=== PATIENT | male | born 1955 | race Caucasian/White ===

== ENCOUNTER 2017-05-15 21:23 | Inpatient (IN) | payer BC ==
[~2017-05-15] VITALS: Ht 167.6 cm; Wt 95.8 kg
[2017-05-15 22:45] VITALS: BP 144/100; PULSE 74; TEMP 36.5; O2SAT 98; Ht 167.6 cm; Wt 95.8 kg
[2017-05-15] MEDS ORDERED: PRAV20TA PO (23:24)
[2017-05-15] MEDS ORDERED: NTRGSL/4 SL (23:24)
[2017-05-15] MEDS ORDERED: MONT1TAB5 PO (23:24)
[2017-05-15] MEDS ORDERED: METO50TA16 PO (23:24)
[2017-05-15] MEDS ORDERED: MOME200A INH (23:24)
[2017-05-15] MEDS ORDERED: PRED-301 PO (23:24)
[2017-05-15] MEDS ORDERED: PANT40TA PO (23:24)
[2017-05-15] MEDS ORDERED: BRL90 PO (23:24)
[2017-05-15] MEDS ORDERED: CLR10 PO (23:24)
[2017-05-16] VITALS (8 sets, daily range): BP systolic 122–163; BP diastolic 77–108; PULSE 78–92; TEMP 36.4–36.9; O2SAT 93–97
[2017-05-16] MEDS ORDERED: PHARMACIST DISCHARGE MED REC CONSULT PRN (00:15)
[2017-05-16] MEDS ORDERED: MoRPHine SULFATE 2 MG/ML CARP IV PRN (00:15)
[2017-05-16] MEDS ORDERED: ACETAMINOPHEN 325 MG TAB PO PRN (00:15)
[2017-05-16] MEDS ORDERED: MAGNESIUM HYDROXIDE SUSP 30 ML UDC PO PRN (00:15)
[2017-05-16] MEDS ORDERED: POLYETHYLENE (MIRALAX) 17 GM PACK PO PRN (00:15)
[2017-05-16] MEDS ORDERED: ONDANSETRON INJ 2 MG/ML 2 ML VIAL IV PRN (00:15)
[2017-05-16] MEDS ORDERED: NITROGLYCERIN 0.4 MG SL PER TAB CHARGE SL PRN (00:15)
[2017-05-16] MEDS ORDERED: ALUMINUM/MAGNESIUM/SIMETH (MAALOX MAX) 30 ML UDC PO PRN (00:15)
[2017-05-16 01:00] LABS: BASO % 0.3 %; BASO ABS # 0.03 K/uL (0-0.2); EOS % 4.2 %; EOS ABS # 0.44 K/uL (0-0.5); HEMATOCRIT 42.8 % (42-52); HEMOGLOBIN 14.8 g/dL (14.0-18.0); IG# 0.05 K/uL (0.00-0.02); LYMPH % 26.6 %; LYMPH ABS # 2.81 K/uL (1.2-3.4); MEAN CELL VOLUME 91.6 fL (80-100); MEAN CORPUSCULAR HEMOGLOBIN 31.7 pg (25-34); MEAN CORPUSCULAR HGB CONC 34.6 g/dl (32-36); MEAN PLATELET VOLUME 10.5 fL (7.4-10.4); MONO % 9.5 %; NEUT % 58.9 %; NEUT ABS # 6.23 K/uL (1.4-6.5); PLATELET COUNT 210 K/uL (130-400); RED CELL DISTRIBUTION WIDTH CV 12.7 % (11.5-14.5); RED CELL DISTRIBUTION WIDTH SD 42.2 fL (36.4-46.3); WHITE BLOOD COUNT 10.56 K/uL (4.8-10.8)
--- NOTE | 2017-05-16 01:01 | History and Physical ---
History & Physical Date & Time of Service: May 16, 2017 at 00:34 Chief Complaint: TIA Primary Care Physician: No Doctor, Assigned History of Present Illness Source: patient, hospital records This is a 61 yo m with a h/o TIA and OR x 4 that is presenting to us as a direct admit from [facility]. The patient states that at approx 0900 this am he felt "unwell" and then started to develop some very mild right UE weakness. This developed while he was shoveling snow. He did not think anything of it as he had a "mini stroke" in September where he had very severe right arm weakness and inability to speak ( there was three episodes 15 minutes each and without sustained loss). The symptoms improved throughout the morning while he rested and he went into town with his at approx 1600. He was walking into a building when he suddenly had a return of his right arm weakness and slurred speech but more intense then previously. He went to the ED where he was evaluated; CT neg for intracranial bleed, neg troponin and concern for TIA vs stroke so patient was transferred for higher level of care. Currently the patient has ongoing right arm weakness where he is able to lift and move fingers but with difficulty. States it is unchanged since the sudden worsening at 1600. He states he does not feel he has difficulty finding words but difficulty saying them. He states he "always had a crooked smile but my said it is much worse than normal". He has right LE weakness but "not near as bad as my right arm." He notes, " I did not come in right away because it was not as intense of the mini stroke, I didn't think it was a stroke at first." Denies presyncope/ syncope, B[place], dizziness, chest pain, palpitations, SOB ,N&V. Patient has a very significant cardiac PMHx. The patient states he has had 9 stents placed in total. His first OR was at the age of 37 and had three additional. He has had two OR this year requiring stents one prior to the September "mini stroke" and one following. He smoked x 15 years and quit after his first OR. He notes his mother passed from an OR as well as his three brothers and one sister. He has three other sisters and one required a CABG and the other two are treated for hyperlipidemia. Past Medical/Surgical History Myocardial infarction x 4 requiring angioplasty TIA right plantar fascitis HTN hyperlipidemia CAD left head injury as a child Family History FH: coronary artery disease SISTER FH: hyperlipidemia SISTER SISTER SISTER FH: myocardial infarction MOTHER, BROTHER, BROTHER, BROTHER, SISTER, Social History Smoking Status: Former Smoker Smokeless Tobacco Use: No Alcohol Use: none Drug Use: none Marital Status: Housing status: lives with family Occupational Status: retired Allergies Coded Allergies: NO KNOWN DRUG ALLERGIES (Verified Allergy, Unknown, ., 05/16/17) Home Medications Scheduled Loratadine (Claritin), 10 MG PO HS Metoprolol Tartrate (Lopressor) (Lopressor), 50 MG PO DAILY Mometasone Furoate-Formoterol (Dulera 200/5 Mcg), 2 PUFFS INH BID Montelukast Sodium (Montelukast Sodium), 1 TAB PO DAILY Nitroglycerin (Nitrostat), 1 TAB SL UD Pantoprazole (Protonix), 40 MG PO DAILY Pravastatin (Pravachol ), 40 MG PO HS Prednisone (Prednisone), 5 MG PO DAILY Ticagrelor (Brilinta), 90 MG PO BID Review of Systems Constitutional: No fever, No chills, No sweats Eyes: No worsening of vision, No diplopia ENT: + problem reported (difficulty with speech), No hearing loss, No trouble swallowing Respiratory: No cough, No sputum, No wheezing, No shortness of breath, No dyspnea on exertion, No dyspnea at rest, No hemoptysis Cardiovascular: No chest pain Abdomen: No pain, No nausea, No vomiting, No diarrhea, No constipation Genitourinary - Male: No hematuria, No dysuria Neurologic: + weakness (as above), + balance problems, No numbness/tingling, No vertigo Psychiatric: No depression symptoms, No anxiety Endocrine: No fatigue Hematologic / Lymphatic: No abnormal bleeding/bruising Integumentary: No rash Physical Exam Vital Signs Date Time Temp Pulse Resp B/P (MAP) Pulse Ox O2 Delivery O2 Flow Rate FiO2 05/15/17 22:45 36.5 74 19 144/100 98 Room Air General Appearance: no apparent distress Head: normocephalic, atraumatic Eyes: normal inspection, PERRL, EOMI, sclerae normal ENT: normal ENT inspection, hearing grossly normal, + pertinent finding ( facial drooping on right side, no tongue or ulnar deviation, slurred speech but understandable) Neck: supple, no adenopathy, no JVD, no carotid bruits Respiratory/Chest: normal breath sounds, no respiratory distress, no accessory muscle use Cardiovascular: regular rate, rhythm, no murmur, normal peripheral pulses Abdomen/GI: normal bowel sounds, non tender, soft Back: normal inspection, no CVA tenderness, normal range of motion Extremities/Musculoskelatal: normal inspection, no calf tenderness, no pedal edema, + pertinent finding (full ROM of all extremities however limited right UE active ROM secondary to weakness; unable to lift arm > 90degrees, 4/5 in right UE 5/5 inright lower ext however weaker than the left le, 5/5 in left UE ) Neurologic/Psych: assembler ping pong table 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 tested (except CNVII as evidence by facial droop and XII as evidenced by slurred speech ), alert, normal mood/affect, oriented x 3, + facial droop (right side), + motor weakness (as noted above ), + pertinent finding (sensation intact throughout, pronator drift right UE, babinski without upswing, no ankle clonus, + 2 DTR patellar bilat) Skin: normal color, warm/dry, no rash Lymphatic: no adenopathy Diagnostics Laboratory Results Results Past 24 Hours Test 05/15/17 04:44 05/16/17 00:07 Range/Units Creatine Kinase MB Ratio 0-3.0 Impression Assessment and Plan This is a 61 yo m suffering from right UE weakness, slurred speech and right facial droop concerning for stroke vs TIA Stroke/ TIA assessment no TPA - tele admission - FLP and HBA1C - MRI brain combo and doppler carotids - patient states he just had an echo 2 weeks ago with his cardio Dr Sanchez at [facility], will request results from cardio and will defer repeat echo to the day team - consult neuro - Add asa 81 mg to am - change pravastatin 50 mg to 80 mg of Lipitor (benefit >risk of hemm stroke considering his CVS history) - Pt/OT/ speech CAD/HLD - continue Brilinta - Pravastatin as above HTN - Metoprolol 50 mg daily held for permissive htn (sys <220 and nassar <120) GERD - continue protonix 40 mg daily Allergies/Asthma - Loratadine 10 mg cont - Montelukast 10 mg daily and Dulera cont DVT Prophylaxis - SCD Full code Resident Physician Supervision Note: Pt examined independently. I discussed the case with the resident and agree with the findings and plan as documented in the note. Any exceptions or clarifications are listed here: 61 y/o M CAD, multiple MIs, stents and multiple TIAs. Developed R weakness and facial droop at 9am - delayed arrival to [facility] until 4pm as symptoms were waxing/waning. Transferred directly from [facility] as R sided symptoms are now persistent. OE AAO x 3 S1,2 R CTAB NT, ND No CCE R upper and lower ext weakness persist, R facial droop is apparent, There is mild speech impairment P: Pt arrived long out of window for TPA He is currently on Brilinta - we will add low dose ASA and will increase Statin dose MRI/MRA and neuro consult are pending - vital/symptoms appear stable at time of admission B janeth held to allow for HTN Documented By: Ike Connolly Level of Care Telemetry Advanced Directives Existing Living Will: Yes Existing Power of Bag Machine Tender: Yes Resuscitation Status FULL RESUSCITATION VTE Prophylaxis VTE Risk Assessment Done? Y/N: Yes Risk Level: Moderate Given or contraindicated: SCD's Social Service Consult None Apply Note Total Time: Critical Care 30 - 74 minutes
[2017-05-16] MEDS: DULERA~ORDER AWAITING ACTION SCH ×4 (01:17→22:59)
[2017-05-16 01:35] LABS: BLOOD UREA NITROGEN 18 mg/dl (7-18); CALCIUM 8.5 mg/dl (8.5-10.1); CARBON DIOXIDE 28 mmol/L (21-32); CKMB 1.3 ng/ml (0.5-3.6); CREATININE 1.01 mg/dl (0.60-1.40); GLUCOSE 95 mg/dl (70-99); POTASSIUM 3.4 mmol/L (3.5-5.1); SODIUM 139 mmol/L (136-145)
[2017-05-16] MEDS ORDERED: POTASSIUM CITRATE 10 MEQ TAB PO ONE (02:45)
[2017-05-16 06:42] LABS: HEMOGLOBIN A1C 5.8 % (4.5-5.6)
[2017-05-16] MEDS ORDERED: LORAZEPAM 2 MG/ML 1 ML VIAL ONE (08:09)
[2017-05-16] MEDS ORDERED: NURSING VERBAL MED ORDER ONE (08:15)
[2017-05-16] MEDS ORDERED: LORAZEPAM 2 MG/ML 1 ML VIAL IV ONE (08:30)
[2017-05-16] MEDS ORDERED: CLOPIDOGREL BISULFATE 75 MG TAB PO SCH (09:00)
[2017-05-16] MEDS ORDERED: PANTOprazole SOD 40 MG TAB PO SCH (09:00)
[2017-05-16] MEDS ORDERED: ATORVASTATIN 40 MG TAB PO SCH (09:00)
[2017-05-16] MEDS ORDERED: FLUOXETINE HCL 20 MG CAP PO SCH (09:00)
[2017-05-16] MEDS ORDERED: POTASSIUM CITRATE 10 MEQ TAB PO SCH (09:00)
[2017-05-16] MEDS ORDERED: TICAGRELOR 90 MG TAB PO SCH (09:00)
--- NOTE | 2017-05-16 09:05 | DIAGNOSTIC IMAGING REPORT ---
BRAIN COMBO HISTORY: 61 years-old Male Stroke acute strokelike symptoms. COMPARISON: CT of the head obtained at outside facility on 05/15/2017 TECHNIQUE: Multiplanar multisequence MRI of the brain was obtained both with and without the use of 9.5 mL Gadavist. FINDINGS: There is a 1.5 x 0.7 cm area of restricted diffusion within the region of the left jimenez radiata demonstrating low signal on the ADC map and slightly increased T2/FLAIR signal compatible with acute infarction. No associated hemorrhage or significant mass effect. No additional acute infarctions identified. The midline structures including the corpus callosum, brainstem, optic chiasm, pineal and pituitary glands appear unremarkable the sagittal T1 series. No cerebellar tonsillar herniation. Degenerative changes are seen within the imaged cervical spine. Scattered foci of increased T2/FLAIR signal seen within the periventricular and subcortical white matter suggesting chronic microvascular ischemic changes. Mild atrophy. No hydrocephalus, intracranial mass or abnormal extra-axial collections. There is no abnormal intra-axial or extra-axial enhancement. The major flow voids at the level the skull base appear patent. Mastoid air cells are clear. Right-sided lynne bullosa with leftward nasal septal spurring. Mild ethmoid sinus disease. Orbits, soft tissues and skull appear unremarkable. IMPRESSION: 1. 1.5 x 0.7 cm acute infarction involves the left jimenez radiata. No associated hemorrhage or significant mass effect. 2. Mild atrophy with mild chronic microvascular ischemic changes. 3. No abnormal intra-axial or extra-axial enhancement. The above report was generated using voice recognition software. It may contain grammatical, syntax or spelling errors. Electronically signed by: Real Banegas M.D. 05/16/2017 9:04 AM Dictated Date/Time: 05/16/2017 8:47 AM
--- NOTE | 2017-05-16 09:36 | DIAGNOSTIC IMAGING REPORT ---
ANGIOGRAPHY HEAD COMBO HISTORY: Mental status change. Weakness. TECHNIQUE: Multiaxial CT images of the head were performed both before and after the intravenous administration of contrast to evaluate the major cerebral vessels. Maximum intensity projection images were also obtained. A dose lowering technique was utilized adhering to the principles of ALARA. COMPARISON: 05/15/2017 FINDINGS: There is no mass, hematoma, midline shift, or acute infarct. Visualized intracranial internal carotid arteries, distal vertebral arteries, and basilar artery are widely patent. There is no significant stenosis, occlusion, or aneurysm seen within the bilateral ACAs, MCAs, or investment counselor. IMPRESSION: No significant stenosis, occlusion, or aneurysm within the mechoopda of Daniels. Minimal scattered atherosclerotic change The above report was generated using voice recognition software. It may contain grammatical, syntax or spelling errors. Electronically signed by: Alfonso Weaver M.D. 05/16/2017 9:34 AM Dictated Date/Time: 05/16/2017 9:32 AM
--- NOTE | 2017-05-16 09:41 | DIAGNOSTIC IMAGING REPORT ---
CT ANGIOGRAPHY NECK COMBO CT DOSE: CLINICAL HISTORY: Weakness. Possible stroke. TECHNIQUE: Unenhanced images were obtained through the neck. CT angiography was then performed in a dynamic helical fashion during intravenous administration of 93 cc of Optiray 320. MIP imaging was performed. A dose lowering technique was utilized adhering to the principles of ALARA. COMPARISON STUDY: None. FINDINGS: There is mild atheromatous plaquing and intimal thickening. There is no evidence of hemodynamic significant carotid stenosis. There is no evidence of carotid dissection. There is no evidence of vertebral artery stenosis or dissection. There is a tiny ulcerated plaque at the left internal carotid artery origin. IMPRESSION: 1. No evidence of hemodynamically significant carotid or vertebral artery stenosis. No evidence of carotid or vertebral artery dissection.. 2. Tiny ulcerated plaque at the left internal carotid artery origin. Electronically signed by: David Bullard M.D. 05/16/2017 9:39 AM Dictated Date/Time: 05/16/2017 9:32 AM
[2017-05-16] MEDS ORDERED: PERFLUTREN LIPID MICROSPHERE (DEFINITY) IV ONE (10:07)
[2017-05-16] MEDS ORDERED: CLOPIDOGREL BISULFATE 300 MG TAB PO STA (10:20)
[2017-05-16] MEDS: ASPIRIN 81 MG ECTAB PO SCH (10:43)
[2017-05-16] MEDS: MONTELUKAST SOD 10 MG TAB PO SCH (10:43)
[2017-05-16 11:00] LABS: CALCIUM 8.7 mg/dl (8.5-10.1); CREATININE 1.01 mg/dl (0.60-1.40); POTASSIUM 3.9 mmol/L (3.5-5.1)
--- NOTE | 2017-05-16 11:02 | Neurology Consultation ---
Neurology Consultation Date of Consultation: May 16, 2017. Attending Physician: Ike Connolly M.D. Primary Care Physician: No Doctor, Assigned Reason for Consultation: Patient is a 61 year old, who I was asked to see at the request of doctors Agus and Cathleen, for neurologic consultation regarding TIA versus stroke. History of Present Illness Source: patient, family, caregiver, hospital records This patient has a longstanding history of cardiac issues with a total of for MIs in the past and 9 stents. His most recent MRI was in September of 2016. Also at that time, the patient had some slurred speech and weakness of the right upper extremity. He felt that that lasted about 15 minutes and then resolved. He was sent from [facility] to [facility] and had an extensive evaluation. He was on aspirin and Plavix daily prior to this in September and he was discharged on aspirin and Brilinta. He is not sure if he actually had a stroke or not but thinks it was a TIA. Patient has a history of hypertension but not diabetes. He was a 1 pack a day cigarette smoker for 20 years quitting in age 35. Over the fall of 2016 he did fairly well although he was having shortness of breath which she attributes to Brilinta. He was doing fairly well until the morning of May 15. He woke at 0530 hours and felt fine. He due to his morning routine and noted at 0900 hours after standing up, he was somewhat vertiginous for a few seconds and he noted a decreased ability to speak well being somewhat slurred and had some very mild weakness of his right upper extremity. This lasted a few minutes, according to the patient, and then improved. He felt "off" thereafter but was not very specific. Around 1600 hours he was getting out of the car to put gas in the car when upon opening the door he noted significant weakness of the right arm and slurred speech. He denied neck pain or pain in the extremities. He wondered if his right leg was a little bit weak but not as much as the arm. He had no numbness of the limbs. His vision was unremarkable and his mentation was good. They drove immediately to the [facility] emergency room (less than a [address]), whereupon he waited in their waiting room for at least an hour before being seen. By the time he was seen a CT scan of the head was unremarkable and there was an attempt to transfer him to [facility] but they did not accept him so he eventually ended up being sent to our hospital. Throughout this whole time he felt that he had mild weakness in his right upper extremity and slurred speech. By the time he got to our hospital he still could uses hand and sign his name and was fairly intelligible with his speech but it was a little worse than when it 1st started at 4 in the afternoon. He slept well and overnight monitoring revealed a 15 second run of V-tach followed by some PVCs without clinical accompaniment. There was no other dysrhythmia. He woke at 0530 hours this morning and felt that his speech was worse and his right arm was worse. Although he did not tell anyone, he was evaluated by nursing staff in the morning. His NIH stroke scale was listed as 3. Patient has no new symptoms otherwise. CBC was unremarkable, Chem profile was unremarkable and hemoglobin A1c was 5.8. The after seeing him at 0730 hours he was sent immediately to the MRI scanner. There was a 1 to 1.5 centimeter acute CVA in the left jimenez radiata. There was no enhancement with contrast. In general he had some mild atrophy and very mild small vessel ischemic changes of an old nature. CT angiography of the head and neck were unremarkable with no significant stenoses. By 1030 hours he was stable no further changes compared to earlier this morning when I 1st saw him. 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 Post appendectomy Family History Mother age 75 of an NV and had hypertension. Father age 42 of pneumonia Social History Patient smoked pack cigarettes per day for about 20 years, quitting at age 35. He does not consume alcohol. 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 largely because of medical issues with his heart Smoking Status: Former smoker Smokeless Tobacco Use: No Alcohol Use: none Drug Use: none Marital Status: Housing Status: lives with family Occupation Status: retired Allergies Coded Allergies: NO KNOWN DRUG ALLERGIES (Verified Allergy, Unknown, ., 05/16/17) Current Inpatient Medications Current Inpatient Medications Medications (Trade) Dose Ordered Sig/Miriam Route Start Time Stop Time Status Last Admin Dose Admin Miscellaneous Information (Pharmacist Discharge Med Rec Consult) 1 ea UD PRN N/A 05/16/17 00:15 06/15/17 00:14 Acetaminophen (Tylenol Tab) 650 mg Q4H PRN PO 05/16/17 00:15 06/15/17 00:14 Al Hydrox/Mg Hydrox/Simethicone (Maalox Max Susp) 15 ml Q4H PRN PO 05/16/17 00:15 06/15/17 00:14 Magnesium Hydroxide (Milk Of Magnesia Susp) 30 ml Q12H PRN PO 05/16/17 00:15 06/15/17 00:14 Ondansetron HCl (Zofran Inj) 4 mg Q6H PRN IV 05/16/17 00:15 06/15/17 00:14 Nitroglycerin (Nitrostat Tab) 0.4 mg UD PRN SL 05/16/17 00:15 06/15/17 00:14 Morphine Sulfate (MoRPHine SULFATE INJ) 2 mg Q30M PRN IV 05/16/17 00:15 05/30/17 00:14 Polyethylene (Miralax Powder Packet) 17 gm DAILY PRN PO 05/16/17 00:15 06/15/17 00:14 Loratadine (Claritin Tab) 10 mg HS PO 05/16/17 21:00 06/15/17 20:59 Montelukast Sodium (Singulair Tab) 10 mg DAILY PO 05/16/17 09:00 06/15/17 08:59 Pantoprazole Sodium (Protonix Tab) 40 mg DAILY PO 05/16/17 09:00 06/15/17 08:59 Miscellaneous Information (Order Awaiting Action) 1 ea QS N/A 05/16/17 01:30 06/15/17 01:29 05/16/17 01:17 1 EA Aspirin (Ecotrin Tab) 81 mg QAM PO 05/16/17 09:00 06/15/17 08:59 Atorvastatin Calcium (Lipitor Tab) 80 mg QAM PO 05/16/17 09:00 06/15/17 08:59 Fluoxetine HCl (Prozac Cap) 20 mg QAM PO 05/16/17 09:00 06/15/17 08:59 Clopidogrel Bisulfate (plAVix TAB) 75 mg QAM PO 05/16/17 09:00 06/15/17 08:59 Review of Systems Constitutional: + weakness, + fatigue, No fever Eyes: No worsening of vision, No diplopia ENT: + hearing loss, No tinnitus, No trouble swallowing Respiratory: No cough, No shortness of breath Cardiovascular: No chest pain, No palpitations Abdomen: No pain, No nausea Musculoskeletal: No joint pain, No muscle pain Genitourinary - Male: No dysuria, No urinary incontinence Neurologic: + weakness, + numbness/tingling, No memory loss, No balance problems Psychiatric: + anxiety, No depression symptoms Endocrine: + fatigue Hematologic / Lymphatic: No abnormal bleeding/bruising Integumentary: No rash Allergic / Immunologic: No hives Physical Exam Vital Signs (Past 24 Hrs): Date Time Temp Pulse Resp B/P (MAP) Pulse Ox O2 Delivery O2 Flow Rate FiO2 05/16/17 04:19 Room Air 05/16/17 03:12 36.8 84 18 147/88 (107) 97 Room Air 05/15/17 22:45 36.5 74 19 144/100 98 Room Air Patient is right-handed. The patient is awake and alert. Speech is significantly dysarthric without aphasia. Mentation and thought processes seem intact with orientation and normal fund of knowledge. Mood and affect are normal and appropriate, although he is somewhat tearful and upset because of his physical condition. Appearance and grooming are normal. Long and short-term memory are intact. The discs are sharp with positive venous pulsations. There are no exudates, hemorrhages, or blood vessel changes seen. Pupils are 4mm bilaterally and reactive to light. Extraocular eye muscles are intact without nystagmus. Visual acuity and visual paul seem normal grossly to confrontation. There are no deficits to sensation of the face bilaterally. Corneal reflexes are positive bilaterally. The left face move well with voluntary command. There was weakness at the corner of the mouth on the right face, with the rest of the 7th cranial nerve distribution being normal. Palate moves well without asymmetry. There is normal sternocleidomastoid and trapezius strength bilaterally. Tongue is midline with good strength bilaterally. Neck is with full range of motion without discomfort. There are no cervical bruits. There are no cranial or ocular bruits. Heart is without murmur. Cervical, thoracic, and lumbar spine are nontender to palpation. Gait is cautious but narrow based and reasonable turns and stance. With outstretched arms there was significant drift on the right. There are no resting, postural, or action tremors. There is no specific ataxia with finger- to-nose testing. There is markedly decreased facility in the right hand. The left was normal. There are no abnormal involuntary movements noted. Motor strength is 5/5 in the left arm and leg both proximally and distally diffusely. Strength is 4-/5 in the right upper extremity proximally and distally. Strength was 4+/5 in the right lower extremity diffusely both proximally and distally. The there was mild decreased tone in the right upper extremity otherwise tone was normal in the other limbs. Muscle bulk is normal, there is no tenderness, no myotonia noted to percussion, and no fasciculations seen. Sensory examination is intact to pin and touch throughout all four limbs. Reflexes are 1/4 in the biceps, triceps, brachioradialis, quadriceps, and Achilles tendons bilaterally. Toes are downgoing with plantar stimulation bilaterally. Peripheral pulses are present and of normal quality distally in all four limbs. There is no peripheral edema noted. Laboratory Results Past 24 Hours: 05/16/17 00:43 Red Blood Count 4.67, Mean Corpuscular Volume 91.6, Mean Corpuscular Hemoglobin 31.7, Mean Corpuscular Hemoglobin Concent 34.6, Mean Platelet Volume 10.5, Neutrophils (%) (Auto) 58.9, Lymphocytes (%) (Auto) 26.6, Monocytes (%) (Auto) 9.5, Eosinophils (%) (Auto) 4.2, Basophils (%) (Auto) 0.3, Neutrophils # (Auto) 6.23, Lymphocytes # (Auto) 2.81, Monocytes # (Auto) 1.00, Eosinophils # (Auto) 0.44, Basophils # (Auto) 0.03 Test 05/16/17 00:07 05/16/17 00:43 05/16/17 08:25 Creatine Kinase MB Ratio (0-3.0) White Blood Count 10.56 K/uL (4.8-10.8) Red Blood Count 4.67 M/uL (4.7-6.1) Hemoglobin 14.8 g/dL (14.0-18.0) Hematocrit 42.8 % (42-52) Mean Corpuscular Volume 91.6 fL (80-100) Mean Corpuscular Hemoglobin 31.7 pg (25-34) Mean Corpuscular Hemoglobin Concent 34.6 g/dl (32-36) Platelet Count 210 K/uL (130-400) Mean Platelet Volume 10.5 fL (7.4-10.4) Neutrophils (%) (Auto) 58.9 % Lymphocytes (%) (Auto) 26.6 % Monocytes (%) (Auto) 9.5 % Eosinophils (%) (Auto) 4.2 % Basophils (%) (Auto) 0.3 % Neutrophils # (Auto) 6.23 K/uL (1.4-6.5) Lymphocytes # (Auto) 2.81 K/uL (1.2-3.4) Monocytes # (Auto) 1.00 K/uL (0.11-0.59) Eosinophils # (Auto) 0.44 K/uL (0-0.5) Basophils # (Auto) 0.03 K/uL (0-0.2) RDW Standard Deviation 42.2 fL (36.4-46.3) RDW Coefficient of Variation 12.7 % (11.5-14.5) Immature Granulocyte % (Auto) 0.5 % Immature Granulocyte # (Auto) 0.05 K/uL (0.00-0.02) Est Creatinine Clear Calc Drug Dose 81.5 ml/min Estimated Average Glucose 120 mg/dl Hemoglobin A1c 5.8 % (4.5-5.6) Creatine Kinase MB 1.3 ng/ml (0.5-3.6) Troponin I < 0.015 ng/ml (0-0.045) Hepatitis C Antibody Screen NEG (NEG) Imaging BRAIN COMBO HISTORY: 61 years-old Male Stroke acute strokelike symptoms. COMPARISON: CT of the head obtained at outside facility on 05/15/2017 TECHNIQUE: Multiplanar multisequence MRI of the brain was obtained both with and without the use of 9.5 mL Gadavist. FINDINGS: There is a 1.5 x 0.7 cm area of restricted diffusion within the region of the left jimenez radiata demonstrating low signal on the ADC map and slightly increased T2/FLAIR signal compatible with acute infarction. No associated hemorrhage or significant mass effect. No additional acute infarctions identified. The midline structures including the corpus callosum, brainstem, optic chiasm, pineal and pituitary glands appear unremarkable the sagittal T1 series. No cerebellar tonsillar herniation. Degenerative changes are seen within the imaged cervical spine. Scattered foci of increased T2/FLAIR signal seen within the periventricular and subcortical white matter suggesting chronic microvascular ischemic changes. Mild atrophy. No hydrocephalus, intracranial mass or abnormal extra-axial collections. There is no abnormal intra-axial or extra-axial enhancement. The major flow voids at the level the skull base appear patent. Mastoid air cells are clear. Right-sided lynne bullosa with leftward nasal septal spurring. Mild ethmoid sinus disease. Orbits, soft tissues and skull appear unremarkable. IMPRESSION: 1. 1.5 x 0.7 cm acute infarction involves the left jimenez radiata. No associated hemorrhage or significant mass effect. 2. Mild atrophy with mild chronic microvascular ischemic changes. 3. No abnormal intra-axial or extra-axial enhancement. The above report was generated using voice recognition software. It may contain grammatical, syntax or spelling errors. Electronically signed by: Real Banegas M.D. 05/16/2017 9:04 AM ANGIOGRAPHY HEAD COMBO HISTORY: Mental status change. Weakness. TECHNIQUE: Multiaxial CT images of the head were performed both before and after the intravenous administration of contrast to evaluate the major cerebral vessels. Maximum intensity projection images were also obtained. A dose lowering technique was utilized adhering to the principles of ALARA. COMPARISON: 05/15/2017 FINDINGS: There is no mass, hematoma, midline shift, or acute infarct. Visualized intracranial internal carotid arteries, distal vertebral arteries, and basilar artery are widely patent. There is no significant stenosis, occlusion, or aneurysm seen within the bilateral ACAs, MCAs, or histology tech. IMPRESSION: No significant stenosis, occlusion, or aneurysm within the [place] of [place]. Minimal scattered atherosclerotic change The above report was generated using voice recognition software. It may contain grammatical, syntax or spelling errors. Electronically signed by: Alfonso Weaver M.D. 05/16/2017 9:[address] ANGIOGRAPHY NECK COMBO CT DOSE: CLINICAL HISTORY: Weakness. Possible stroke. TECHNIQUE: Unenhanced images were obtained through the neck. CT angiography was then performed in a dynamic helical fashion during intravenous administration of 93 cc of Optiray 320. MIP imaging was performed. A dose lowering technique was utilized adhering to the principles of ALARA. COMPARISON STUDY: None. FINDINGS: There is mild atheromatous plaquing and intimal thickening. There is no evidence of hemodynamic significant carotid stenosis. There is no evidence of carotid dissection. There is no evidence of vertebral artery stenosis or dissection. There is a tiny ulcerated plaque at the left internal carotid artery origin. IMPRESSION: 1. No evidence of hemodynamically significant carotid or vertebral artery stenosis. No evidence of carotid or vertebral artery dissection.. 2. Tiny ulcerated plaque at the left internal carotid artery origin. Electronically signed by: David Bullard M.D. 05/16/2017 9:39 AM Impression 1. Small acute left jimenez radiata area CVA, likely small vessel ischemic in nature. The time frame and evolution of this event speaks against embolic stroke. Risk factors include hypertension, dyslipidemia, and previous history of cigarette smoking as well as genetics. Neurologic examination is remarkable for significant dysarthria, significant weakness of the right upper extremity and very mild weakness of the right lower extremity. There mild facial weakness on the right as well. MRI shows a 1-1.5 centimeter acute stroke in the left jimenez radiata area. CT angiography of the head neck were unremarkable with no significant vessel stenosis. This event happened on Brilinta and aspirin I had a discussion with Dr. Matute (Stroke service) at [facility] regarding this case. We discussed differential diagnosis and treatment options. 2. Coronary artery disease post MIs with multiple stents. From a cardiac standpoint, he seems stable. He is on Brilinta but I believe he is having side effects to Brilinta with shortness of breath. 3. Mild chronic cerebral ischemia seen on MRI 4. Patient has a history of some snoring and pauses of breathing and I cannot exclude sleep apnea. 5. Patient is somewhat anxious and depressed currently from his current physical condition. Plan 1. 300 milligram loading dose of clopidogrel today, followed by 75 milligrams clopidogrel daily 2. Continue 81 milligram aspirin tablet daily 3. Discontinue Brilinta 4. Awaiting fasting lipid profile results Will make recommendations regarding high-dose verses regular statin after the results of the lipid profile 5. Physical, occupational, and speech therapy consult Consider rehabilitation hospital consult. This patient might benefit from a rehabilitation hospital stay following acute care here 6. Consider overnight polysomnogram as an outpatient 7. Consider fluoxetine 10 milligrams daily. This is routinely done post stroke at [facility], not only for mood post stroke but also helping with the process of healing I have spoken at length with Dr. Grossman regarding this case including differential diagnosis and treatment options. I spent a total of 145 minutes the in care of this patient today including records review, direct patient evaluation, discussion of the case with the patient and his at bedside, discussion with Dr. Grossman, and discussion with Dr. Matute, the nursing staff and residents on the case
--- NOTE | 2017-05-16 11:04 | Medical Student: [facility] ---
Med Student History & Physical Date & Time of Service: May 16, 2017 at 09:16 Chief Complaint: TIA Primary Care Physician: No Doctor, Assigned History of Present Illness Source: patient, partner, hospital records Pt is a 61 yo M right handed male with previous mini-stroke and significant cardiac hx who presented with unilateral RUE weakness, facial droop, and dysarthria. He woke up in his normal health around 0530. Around 0900, he felt "sick and wobbly" which lasted a couple of seconds. At the same time he noticed slight right arm weakness and mild speaking difficulty which lasted a few seconds. He believes his sx completely resolved and did not seek medical attention. At 1600 while pumping gas, he noticed he couldn't lift his right arm , had speech difficulty, and mild right leg weakness which was much more severe than this morning. His immediately drove him to [facility] ED. CT scan of head negative. Staff tried to send him to [facility] due to his electroplater apprentice being there, but was not successful. He arrived the [facility] ED at 22:00, outside the window for tPA. On arrival he still complained of the unilateral weakness most strongly noted in his RUE and dysarthria. He did note that on admission he still was able to sign his name, with difficulty noted. He was admitted to the tele service. Previous mini stroke occurred in September of 2016 while he was in cardiac rehab for an [place] (which also occurred in September). His mini stroke occurred while he was using Plavix and baby ASA. He was assessed in [facility] (currently have no records from this), where he was switched to Brilinta and baby ASA. He noted resolution of his sx and denied any changes to mood, speech issues, incontinence , vision changes. He did note that he would get fatigued while walking and increased SOB. His electroplater apprentice mentioned that due to the increased SOB, he wanted to switch Brilinta back to Plavix. Pt's cardiac hx is notable for [place] requiring angioplasty x4 and has had 9 stents placed. On monitor last night, pt noted to have 15 s of ventricular tachycardia, followed by frequent PVCs. No clinical changes were documented. This morning pt wakes up on 0530 and notes his RUE and dysarthria is worse than when he went to bed. He also still complains of mild leg weakness. He denies any numbness or pain. Past Medical/Surgical History Medical Hx: 1. CAD: stent x9 2. [place] with angioplasy x4 (most recently in September 2016) 3. Mini stroke (September 2016) 4. HTN 5. HLD 6. Asthma 7. GERD Surgery: 1. Lumbar spine surgery for herniated disc 2. Appendectomy Family History Father: at 42 due to complications with pneumonia. Unknown if any heart hx or stroke hx Mother: at 75 due to [place]. Also noted HTN. No stroke hx. Social History Smoking Status: Former Smoker (Quit at age 35. Smoked approx 20 yrs at 1ppd) Smokeless Tobacco Use: No Alcohol Use: none Drug Use: none Marital Status: Housing status: lives with family Occupational Status: retired Allergies Coded Allergies: NO KNOWN DRUG ALLERGIES (Verified Allergy, Unknown, ., 05/16/17) Medications Loratadine (Claritin), 10 MG PO HS Metoprolol Tartrate (Lopressor) (Lopressor), 50 MG PO DAILY Mometasone Furoate-Formoterol (Dulera 200/5 Mcg), 2 PUFFS INH BID Montelukast Sodium (Montelukast Sodium), 1 TAB PO DAILY Nitroglycerin (Nitrostat), 1 TAB SL UD Pantoprazole (Protonix), 40 MG PO DAILY Pravastatin (Pravachol ), 40 MG PO HS Prednisone (Prednisone), 5 MG PO DAILY Ticagrelor (Brilinta), 90 MG PO BID Review of Systems See HPI Physical Exam Vital Signs (24 Hours) Date Time Temp Pulse Resp B/P (MAP) Pulse Ox O2 Delivery O2 Flow Rate FiO2 05/16/17 04:19 Room Air 05/16/17 03:12 36.8 84 18 147/88 (107) 97 Room Air 05/15/17 22:45 36.5 74 19 144/100 98 Room Air General Appearance: WD/WN, no apparent distress Head: normocephalic, atraumatic Neuro: Mental Status: Pt is alert and oriented. Normal mood and affect. Speech is mildly broken with dysarthria, no aphasia good comprehension, repetition and naming. Appropriate level of knowledge. Memory intact. CN: CN1: not tested CN2: PERRLA, visual paul full to confrontation CN3,4,6: EOM intact, no nystagmus CN5: Symmetric sensation to light touch V1-3 distribution. CN7: Asymmetric smile, eye closure CN8: hearing intact, equal bilaterally CN9,10: uvula midline, palate elevates symmetrically CN11: shoulder shrug symmetric CN12: tongue protrudes midline, full motion of tongue Sensory: Equal sensation to touch bilaterally in the distal upper extremities and lower extremities. Motor: There is a pronator drift of out-stretched arms on the right side; normal on left. Muscle bulk normal, no tremors noted. Mildly decreased tone in the right upper extremity, normal on left. Strength strength in upper extremities asymmetric. 4-/5 on right extremity in biceps, triceps, deltoids and 5/5 on the left. In lower extremities, 4+/5 on right hip flexion/extension, knee flexion/ extension, ankle flexion/extension and 5/5 on left. Decreased facility in right hand with rapid movements. Reflexes: Reflexes 1+ in triceps, biceps, brachioradialis, quadriceps, Achilles tendons bilaterally Babinski reflex is down-going. Gait: Normal, but cautious gait and turning. Diagnostics Laboratory Results Results Past 24 Hours Test 05/16/17 00:07 05/16/17 00:43 05/16/17 08:25 Range/Units Creatine Kinase MB Ratio 0-3.0 White Blood Count 10.56 4.8-10.8 K/uL Red Blood Count 4.67 4.7-6.1 M/uL Hemoglobin 14.8 14.0-18.0 g/dL Hematocrit 42.8 42-52 % Mean Corpuscular Volume 91.6 80-100 fL Mean Corpuscular Hemoglobin 31.7 25-34 pg Mean Corpuscular Hemoglobin Concent 34.6 32-36 g/dl Platelet Count 210 130-400 K/uL Mean Platelet Volume 10.5 7.4-10.4 fL Neutrophils (%) (Auto) 58.9 % Lymphocytes (%) (Auto) 26.6 % Monocytes (%) (Auto) 9.5 % Eosinophils (%) (Auto) 4.2 % Basophils (%) (Auto) 0.3 % Neutrophils # (Auto) 6.23 1.4-6.5 K/uL Lymphocytes # (Auto) 2.81 1.2-3.4 K/uL Monocytes # (Auto) 1.00 0.11-0.59 K/uL Eosinophils # (Auto) 0.44 0-0.5 K/uL Basophils # (Auto) 0.03 0-0.2 K/uL RDW Standard Deviation 42.2 36.4-46.3 fL RDW Coefficient of Variation 12.7 11.5-14.5 % Immature Granulocyte % (Auto) 0.5 % Immature Granulocyte # (Auto) 0.05 0.00-0.02 K/uL Sodium Level 139 136-145 mmol/L Potassium Level 3.4 3.5-5.1 mmol/L Chloride Level 105 98-107 mmol/L Carbon Dioxide Level 28 21-32 mmol/L Anion Gap 6.0 3-11 mmol/L Blood Urea Nitrogen 18 7-18 mg/dl Creatinine 1.01 0.60-1.40 mg/dl Est Creatinine Clear Calc Drug Dose 81.5 ml/min Estimated GFR () 91.3 Estimated GFR (Non- 78.8 BUN/Creatinine Ratio 17.4 10-20 Random Glucose 95 70-99 mg/dl Estimated Average Glucose 120 mg/dl Hemoglobin A1c 5.8 4.5-5.6 % Calcium Level 8.5 8.5-10.1 mg/dl Creatine Kinase MB 1.3 0.5-3.6 ng/ml Troponin I < 0.015 0-0.045 ng/ml Hepatitis C Antibody Screen NEG NEG Diagnostic Radiology MRI Brain - 05/16/17 FINDINGS: There is a 1.5 x 0.7 cm area of restricted diffusion within the region of the left jimenez radiata demonstrating low signal on the ADC map and slightly increased T2/FLAIR signal compatible with acute infarction. No associated hemorrhage or significant mass effect. No additional acute infarctions identified. The midline structures including the corpus callosum, brainstem, optic chiasm, pineal and pituitary glands appear unremarkable the sagittal T1 series. No cerebellar tonsillar herniation. Degenerative changes are seen within the imaged cervical spine. Scattered foci of increased T2/FLAIR signal seen within the periventricular and subcortical white matter suggesting chronic microvascular ischemic changes. Mild atrophy. No hydrocephalus, intracranial mass or abnormal extra-axial collections. There is no abnormal intra-axial or extra-axial enhancement. The major flow voids at the level the skull base appear patent. Mastoid air cells are clear. Right-sided lynne bullosa with leftward nasal septal spurring. Mild ethmoid sinus disease. Orbits, soft tissues and skull appear unremarkable. IMPRESSION: 1. 1.5 x 0.7 cm acute infarction involves the left jimenez radiata. No associated hemorrhage or significant mass effect. 2. Mild atrophy with mild chronic microvascular ischemic changes. 3. No abnormal intra-axial or extra-axial enhancement. CTA Head - 05/16/17 FINDINGS: There is no mass, hematoma, midline shift, or acute infarct. Visualized intracranial internal carotid arteries, distal vertebral arteries, and basilar artery are widely patent. There is no significant stenosis, occlusion, or aneurysm seen within the bilateral ACAs, MCAs, or cleaner laboratory equipment. IMPRESSION: No significant stenosis, occlusion, or aneurysm within the robinson of Daniels. Minimal scattered atherosclerotic change CTA Neck - 05/16/17 FINDINGS: There is mild atheromatous plaquing and intimal thickening. There is no evidence of hemodynamic significant carotid stenosis. There is no evidence of carotid dissection. There is no evidence of vertebral artery stenosis or dissection. There is a tiny ulcerated plaque at the left internal carotid artery origin. IMPRESSION: 1. No evidence of hemodynamically significant carotid or vertebral artery stenosis. No evidence of carotid or vertebral artery dissection.. 2. Tiny ulcerated plaque at the left internal carotid artery origin. Normal EKG, No prior EKG available Impression Assessment and Plan Pt is a 61 yo right handed male who presents with 1 day onset of RUE weakness, dysarthria, right facial weakness and mild RLE weakness, while taking Brilinta and ASA. Pt was not a candidate for tPA. Pt did note acute worsening upon awakening this morning in terms of dysarthria and RUE strength, but is currently stable. He denies any pain or numbness in the RUE or RLE. Sx time frame and evolution consistent with small vessel ischemia as opposed to cardioembolic stroke. Risk factors: smoking hx, HTN, HLD, CAD, [place] hx, possible HARVEY MRI of brain confirms acute infarction involves the left jimenez radiata. CTA of head and neck show no significant stenosis. Plan 1. Stroke likely due to small vessel damage 2/2 HTN a) Switch Brilinta to Plavix 75mg -Begin with 300mg Plavix loading dose b) Continue ASA 81 mg c) Awaiting results of lipid profile -recommendations about high dose statins following lipid profile d) PT/OT and speech therapy consult e) Consider rehab hospital consult f) Consider Fluoxetine 10 mg g) Consider outpatient polysomnography to r/o HARVEY Advanced Directives Existing Living Will: Yes Existing Power of [employer] Fisherman: Yes
--- NOTE | 2017-05-16 11:15 | ECHOCARDIOGRAM REPORT ---
*NOTICE TO RECEIVING REPUBLICAN AGENCY This information is strictly Confidential and protected under [place] law. [place] law prohibits you from making any further disclosure of this information unless further disclosure is expressly permitted by the written consent of the person to whom it pertains or is authorized by law. A general authorization for the release of medical or other information is not sufficient for this purpose. Hospital accepts no responsibility if the information is made available to any other person, INCLUDING THE PATIENT. Interpretation Summary * Name: MARBELLA MCCRARY Study Date: 05/16/2017 09:13 AM BP: 147/88 mmHg * Patient Location: C.2T\S\E217\S\1 HR: 84 * : 1955 (M/d/yyyy) Gender: Male Height: 65 in * Age: 61 yrs Ethnicity: CA Weight: 208 lb * Ordering Physician: Tiffani Guerrero * Referring Physician: Saurabh Clemens * Performed By: Heidy Zaragoza RDCS * * Reason For Study: Stroke * BSA: 2.0 m2 * No cardiac source of emboli noted. * -- Conclusions -- * Left ventricular systolic function is normal. * Grade I diastolic dysfunction, (abnormal relaxation pattern). * Injection of contrast documented no interatrial shunt. Procedure Details * A complete two-dimensional transthoracic echocardiogram was performed (2D, M-mode, Doppler and color flow Doppler). * A saline contrast injection was performed to assess for cardiac shunting. * The injection was performed through an intravenous line in the right arm. * The attending nurse who injected the saline contrast was Ivette English RN. * A total of 20 cc of agitated saline was given. * A contrast injection of Definity was performed to improve assessment of LV function. * Contrast was injected into an intravenous site in the right arm. * One vial of Definity ultrasound contrast was diluted in normal saline to a total volume of 10 ml. A total of '2' ml of solution was administered during imaging. * Lot # [id number] of Definity utilized for procedure. * Expiration date . * The attending nurse who injected the contrast agent was Ivette English RN. Left Ventricle * The left ventricle is normal in size. * There is normal left ventricular wall thickness. * Ejection Fraction = 55-60%. * Left ventricular systolic function is normal. * Grade I diastolic dysfunction, (abnormal relaxation pattern). * The left ventricular wall motion is normal. Right Ventricle * The right ventricle is normal in size and function. * The right ventricular systolic function is normal as assessed by tricuspid annular plane systolic excursion (TAPSE) (normal >1.5 cm). Atria * The left atrial size is normal. * Right atrial size is normal. * Injection of contrast documented no interatrial shunt. Mitral Valve * The mitral valve is grossly normal. * Significant mitral regurgitation is absent. Tricuspid Valve * The tricuspid valve is not well visualized, but is grossly normal. * Significant tricuspid regurgitation is absent. Aortic Valve * The aortic valve is normal in structure and function. * No hemodynamically significant valvular aortic stenosis. * There is no significant aortic regurgitation. Great Vessels * The aortic root is normal size. Pericardium/Pleural * There is no pericardial effusion. MMode 2D Measurements and Calculations IVSd 1.0 cm IVSs 1.4 cm LVIDd 4.6 cm LVIDs 3.1 cm LVPWd 1.1 cm LVPWs 1.7 cm IVS/LVPW 0.96 FS 33.4 % EDV(Teich) 97.4 ml ESV(Teich) 36.8 ml EF(Teich) 62.2 % EDV(cubed) 97.4 ml ESV(cubed) 28.7 ml EF(cubed) 70.5 % % IVS thick 35.6 % % LVPW thick 57.2 % LV mass(C)d 175.2 grams LV mass(C)dI 87.1 grams/m\S\2 LV mass(C)s 176.1 grams LV mass(C)sI 87.6 grams/m\S\2 SV(Teich) 60.6 ml SI(Teich) 30.1 ml/m\S\2 SV(cubed) 68.7 ml SI(cubed) 34.1 ml/m\S\2 Ao root diam 2.8 cm Ao root area 6.1 cm\S\2 ACS 1.7 cm LA dimension 3.8 cm LA/Ao 1.4 LVAd ap4 26.4 cm\S\2 LVLd ap4 7.7 cm EDV(MOD-sp4) 75.0 ml EDV(sp4-el) 77.3 ml LVAs ap4 15.6 cm\S\2 LVLs ap4 7.1 cm ESV(MOD-sp4) 31.9 ml ESV(sp4-el) 29.1 ml EF(MOD-sp4) 57.5 % EF(sp4-el) 62.3 % LVAd ap2 31.9 cm\S\2 LVLd ap2 9.3 cm EDV(MOD-sp2) 91.9 ml EDV(sp2-el) 92.7 ml LVAs ap2 16.9 cm\S\2 LVLs ap2 6.7 cm ESV(MOD-sp2) 37.2 ml ESV(sp2-el) 35.9 ml EF(MOD-sp2) 59.5 % EF(sp2-el) 61.2 % LVLd %diff 18.1 % EDV(MOD-bp) 91.4 ml LVLs %diff -5.79 % ESV(MOD-bp) 34.0 ml EF(MOD-bp) 62.8 % SV(MOD-sp4) 43.1 ml SI(MOD-sp4) 21.4 ml/m\S\2 SV(MOD-sp2) 54.7 ml SI(MOD-sp2) 27.2 ml/m\S\2 SV(MOD-bp) 57.4 ml SI(MOD-bp) 28.5 ml/m\S\2 SV(sp4-el) 48.2 ml SI(sp4-el) 23.9 ml/m\S\2 SV(sp2-el) 56.8 ml SI(sp2-el) 28.2 ml/m\S\2 Doppler Measurements and Calculations MV E max dyan 53.8 cm/sec MV A max dyan 76.2 cm/sec MV E/A 0.71 MV dec time 0.32 sec Ao V2 max 111.2 cm/sec Ao max PG 4.9 mmHg Ao max PG (full) 1.6 mmHg LV V1 max PG 3.3 mmHg LV V1 max 91.2 cm/sec PA V2 max 152.0 cm/sec PA max PG 9.2 mmHg
--- NOTE | 2017-05-16 12:46 | Cardiology Consultation ---
Cardiology Consultation Date of Consultation: May 16, 2017. Requesting Physician: Rebeca Reason for Consultation: VT,CAD,CVA Pt evaluation today including: conversation w/ patient, conversation w/ family , physical exam, chart review, lab review, review of studies, review of inpatient medication list, conversation w/ attending History of Present Illness Patient is a 61-year-old gentleman with an extensive history of cardiac disease who was admitted to [facility] after being transferred from another facility. Apparently he was having some difficulty with movement of his right arm. He was also noticing some changes in his speech over the course of the day. He is felt to have had a cerebral vascular accident and transferred here for additional management. Patient does report having similar symptoms in the past. He reportedly had a TIA last summer. He also reports having had 2 heart attacks last year requiring percutaneous intervention on both occasions. Patient states that in general he is an active individual was accustomed to walking and performing light exercise. 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 He has not report symptoms of chest discomfort with activity recently. He has an element of dyspnea but this appears to be more positional than exertional. There has not been any significant change in his mild dyspnea. Patient states that he does have chest pain with myocardial ischemia. At the time of his prior interventions he was having chest pain. He has not reported any of this chest pain since his last intervention in September of 2016. He has occasional palpitations immediately preceding heart attacks. He is not notice palpitations at other times. He denies significant dizziness or lightheadedness. He has had 1 episode of syncope in the past associated with nitroglycerin use. He does have some difficulty breathing at nighttime but I do not believe this is overt orthopnea. Seems he may have an element of undiagnosed sleep apnea. He has not report any lower extremity edema recently. With the time of this interview the patient is feeling well. He still complains of some weakness involving the right arm and some difficulty with speech. No difficulty with word finding. Past Medical/Surgical History Coronary artery disease Patient reports having suffered a 1st myocardial infarction in his 30s. He reports having had to infarcts last year requiring percutaneous intervention. Overall he claims to have 9 stents the distribution of which is unknown to him. The initial procedure was done in [place]. More recent procedures but done at [facility] Given TIAs Family History FH: coronary artery disease SISTER FH: hyperlipidemia SISTER SISTER SISTER FH: myocardial infarction MOTHER, BROTHER, BROTHER, BROTHER, SISTER, Social History Smoking Status: Former Smoker (Quit at age 35. 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 Review of Systems No recent constitutional symptoms such as fevers or chills. All Other Systems: Reviewed and Negative Allergies Coded Allergies: NO KNOWN DRUG ALLERGIES (Verified Allergy, Unknown, ., 05/16/17) Medications Current Inpatient Medications Medications (Trade) Dose Ordered Sig/Miriam Route Start Time Stop Time Status Last Admin Dose Admin Miscellaneous Information (Pharmacist Discharge Med Rec Consult) 1 ea UD PRN N/A 05/16/17 00:15 06/15/17 00:14 Acetaminophen (Tylenol Tab) 650 mg Q4H PRN PO 05/16/17 00:15 06/15/17 00:14 Al Hydrox/Mg Hydrox/Simethicone (Maalox Max Susp) 15 ml Q4H PRN PO 05/16/17 00:15 06/15/17 00:14 Magnesium Hydroxide (Milk Of Magnesia Susp) 30 ml Q12H PRN PO 05/16/17 00:15 06/15/17 00:14 Ondansetron HCl (Zofran Inj) 4 mg Q6H PRN IV 05/16/17 00:15 06/15/17 00:14 Nitroglycerin (Nitrostat Tab) 0.4 mg UD PRN SL 05/16/17 00:15 06/15/17 00:14 Morphine Sulfate (MoRPHine SULFATE INJ) 2 mg Q30M PRN IV 05/16/17 00:15 05/30/17 00:14 Polyethylene (Miralax Powder Packet) 17 gm DAILY PRN PO 05/16/17 00:15 06/15/17 00:14 Loratadine (Claritin Tab) 10 mg HS PO 05/16/17 21:00 06/15/17 20:59 Montelukast Sodium (Singulair Tab) 10 mg DAILY PO 05/16/17 09:00 06/15/17 08:59 05/16/17 10:43 10 MG Pantoprazole Sodium (Protonix Tab) 40 mg DAILY PO 05/16/17 09:00 06/15/17 08:59 05/16/17 10:43 40 MG Miscellaneous Information (Order Awaiting Action) 1 ea QS N/A 05/16/17 01:30 06/15/17 01:29 05/16/17 01:17 1 EA Aspirin (Ecotrin Tab) 81 mg QAM PO 05/16/17 09:00 06/15/17 08:59 05/16/17 10:43 81 MG Atorvastatin Calcium (Lipitor Tab) 80 mg QAM PO 05/16/17 09:00 06/15/17 08:59 05/16/17 10:43 80 MG Fluoxetine HCl (Prozac Cap) 20 mg QAM PO 05/16/17 09:00 06/15/17 08:59 05/16/17 10:42 20 MG Clopidogrel Bisulfate (plAVix TAB) 75 mg QAM PO 05/17/17 09:00 06/16/17 08:59 Heparin Sodium (Porcine) (Heparin Sq 5000 Unit/0.5ml) 5,000 unit Q8 SQ 05/16/17 14:00 06/15/17 13:59 UNV Physical Exam Vital Signs Past 12 Hours Date Time Temp Pulse Resp B/P (MAP) Pulse Ox O2 Delivery O2 Flow Rate FiO2 05/16/17 12:00 Room Air 05/16/17 11:31 36.4 91 22 147/104 (118) 95 Room Air 05/16/17 08:00 Room Air 05/16/17 04:19 Room Air 05/16/17 03:12 36.8 84 18 147/88 (107) 97 Room Air The patient is alert and oriented. Mood and affect appeared normal. He answered all questions appropriately. HEENT: Pupils are equal and reactive to light and accommodation. Extraocular movements are intact. The sclerae are anicteric. Neuro: He did have a right-sided facial droop and tongue deviation to the right. He had weakness in the right upper extremity Neck: Patient's neck is supple. He has palpable carotid pulses bilaterally without bruits on auscultation. There is no evidence of jugular venous distention. The thyroid is not enlarged. Lungs: Clear to auscultation bilaterally. He has good air movement without use of accessory muscles. No rales wheezes or rhonchi. Cardiac: Heart demonstrates a regular rate and rhythm. Normal S1 and S2. No murmurs on examination. Pulses: The patient has palpable radial pulses bilaterally that are equal in intensity Extremities: There was no evidence of hypoperfusion. There is no cyanosis or clubbing. There is no edema. Skin: I did not appreciate any rashes on examination today. Data Laboratory Results: Last 24 Hours Test 05/16/17 00:07 05/16/17 00:43 05/16/17 10:25 05/16/17 10:40 Creatine Kinase MB Ratio White Blood Count 10.56 K/uL Red Blood Count 4.67 M/uL Hemoglobin 14.8 g/dL Hematocrit 42.8 % Mean Corpuscular Volume 91.6 fL Mean Corpuscular Hemoglobin 31.7 pg Mean Corpuscular Hemoglobin Concent 34.6 g/dl Platelet Count 210 K/uL Mean Platelet Volume 10.5 fL Neutrophils (%) (Auto) 58.9 % Lymphocytes (%) (Auto) 26.6 % Monocytes (%) (Auto) 9.5 % Eosinophils (%) (Auto) 4.2 % Basophils (%) (Auto) 0.3 % Neutrophils # (Auto) 6.23 K/uL Lymphocytes # (Auto) 2.81 K/uL Monocytes # (Auto) 1.00 K/uL Eosinophils # (Auto) 0.44 K/uL Basophils # (Auto) 0.03 K/uL RDW Standard Deviation 42.2 fL RDW Coefficient of Variation 12.7 % Immature Granulocyte % (Auto) 0.5 % Immature Granulocyte # (Auto) 0.05 K/uL Sodium Level 139 mmol/L 136 mmol/L Potassium Level 3.4 mmol/L 3.9 mmol/L Chloride Level 105 mmol/L 102 mmol/L Carbon Dioxide Level 28 mmol/L 30 mmol/L Anion Gap 6.0 mmol/L 4.0 mmol/L Blood Urea Nitrogen 18 mg/dl 16 mg/dl Creatinine 1.01 mg/dl 1.01 mg/dl Est Creatinine Clear Calc Drug Dose 81.5 ml/min 80.7 ml/min Estimated GFR () 91.3 91.3 Estimated GFR (Non- 78.8 78.8 BUN/Creatinine Ratio 17.4 15.8 Random Glucose 95 mg/dl 108 mg/dl Estimated Average Glucose 120 mg/dl Hemoglobin A1c 5.8 % Calcium Level 8.5 mg/dl 8.7 mg/dl Creatine Kinase MB 1.3 ng/ml Troponin I < 0.015 ng/ml Hepatitis C Antibody Screen NEG Imaging: CT did not demonstrate any evidence of carotid stenosis or intracranial vascular disease. Brain MRI did demonstrate an acute stroke. EKG: Normal sinus rhythm. Essentially normal EKG Telemetry reviewed: Patient generally in a sinus rhythm with occasional PVCs. One run of monomorphic nonsustained ventricular tachycardia at midnight lasting 15 seconds. Assessment & Plan 1. Ventricular tachycardia: Patient did have an episode of nonsustained ventricular tachycardia. This was noticed on telemetry at midnight. This was monomorphic in nature. Patient of course was unaware of any arrhythmia. There was no documented hemodynamic compromise. His echocardiogram performed earlier today revealed preserved LV systolic function without gross wall motion abnormality. He does not endorse symptoms of frequent dizziness, palpitation or syncope. He certainly has a extensive history of coronary disease and may be at risk of more malignant arrhythmia. However, there is not appear to be any pressing indication at this time for additional testing or intervention. He is not describing symptoms of active ischemia. Cardiac biomarkers are normal. He has preserved LV systolic function. He is on a beta-janeth but his record suggests this is metoprolol tartrate dosed once daily. He would likely benefit from a change to metoprolol succinate at the same dose. 2. Coronary artery disease: Patient's most recent intervention was in September of 2016. He was on Brilinta and now is on dual anti-platelet therapy. He perform some vigorous activity with chopping wood daily. He has not had any recurrence of his index chest pain. He has not taken any recent nitroglycerin. I do not think there has been any recent cardiac ischemia. I would advocate continued aggressive secondary prevention. 3. Dyspnea: Patient does report some dyspnea. On closer questioning this is not appear to be exclusively exertional. He states that occasionally he feels dyspneic after bending over and sitting up or changing positions. There is some debate as to whether this could be related to his Brilinta. It is a common side effect with Brilinta usually at initiation. He states that his primary acute care nurse consider switching him to Plavix. I would defer this change to his primary acute care nurse and continue Brilinta currently. 4. Lipids: Patient is on pravastatin. Guideline directed medical therapy with suggests he benefits from a more potent and higher dose statin.
[2017-05-16] MEDS ORDERED: PRAVASTATIN SOD 40 MG TAB PO ONE (19:30)
[2017-05-16] MEDS: LORATADINE 10 MG TAB PO SCH (20:12)
[2017-05-16] MEDS ORDERED: PRAVASTATIN SOD 20 MG TAB PO SCH (21:00)
[2017-05-16] MEDS: HEPARIN SOD 5000 UNIT/0.5 ML CARP SQ SCH (22:08)
--- NOTE | 2017-05-16 22:29 | Family Medicine Progress Note ---
Progress Note Date of Service May 16, 2017. Subjective Pt evaluation today including: conversation w/ patient, physical exam, chart review, lab review Pain: no discomfort PO Intake: tolerating This AM pt reported slurred speech, facial droop and arm weakness Constitutional: + weakness, No fever, No chills ENT: + problem reported (speech changes) Cardiovascular: No chest pain Abdomen: No pain, No nausea, No vomiting Male : No dysuria Neurologic: + weakness, + problem reported (slurred speech; facial droop) Medications Current Inpatient Medications Medications (Trade) Dose Ordered Sig/Miriam Route Start Time Stop Time Status Last Admin Dose Admin Miscellaneous Information (Pharmacist Discharge Med Rec Consult) 1 ea UD PRN N/A 05/16/17 00:15 06/15/17 00:14 Acetaminophen (Tylenol Tab) 650 mg Q4H PRN PO 05/16/17 00:15 06/15/17 00:14 Al Hydrox/Mg Hydrox/Simethicone (Maalox Max Susp) 15 ml Q4H PRN PO 05/16/17 00:15 06/15/17 00:14 Magnesium Hydroxide (Milk Of Magnesia Susp) 30 ml Q12H PRN PO 05/16/17 00:15 06/15/17 00:14 Ondansetron HCl (Zofran Inj) 4 mg Q6H PRN IV 05/16/17 00:15 06/15/17 00:14 Nitroglycerin (Nitrostat Tab) 0.4 mg UD PRN SL 05/16/17 00:15 06/15/17 00:14 Morphine Sulfate (MoRPHine SULFATE INJ) 2 mg Q30M PRN IV 05/16/17 00:15 05/30/17 00:14 Polyethylene (Miralax Powder Packet) 17 gm DAILY PRN PO 05/16/17 00:15 06/15/17 00:14 Loratadine (Claritin Tab) 10 mg HS PO 05/16/17 21:00 06/15/17 20:59 05/16/17 20:12 10 MG Montelukast Sodium (Singulair Tab) 10 mg DAILY PO 05/16/17 09:00 06/15/17 08:59 05/16/17 10:43 10 MG Pantoprazole Sodium (Protonix Tab) 40 mg DAILY PO 05/16/17 09:00 06/15/17 08:59 05/16/17 10:43 40 MG Miscellaneous Information (Order Awaiting Action) 1 ea QS N/A 05/16/17 01:30 06/15/17 01:29 05/16/17 22:59 1 EA Aspirin (Ecotrin Tab) 81 mg QAM PO 05/16/17 09:00 06/15/17 08:59 05/16/17 10:43 81 MG Clopidogrel Bisulfate (plAVix TAB) 75 mg QAM PO 05/17/17 09:00 06/16/17 08:59 Heparin Sodium (Porcine) (Heparin Sq 5000 Unit/0.5ml) 5,000 unit Q8 SQ 05/16/17 22:00 06/15/17 21:59 05/16/17 22:08 5,000 UNIT Fluoxetine HCl (Prozac Cap) 10 mg QAM PO 05/17/17 09:00 06/15/17 08:59 Pravastatin Sodium (Pravachol Tab) 60 mg DAILY@17 PO 05/17/17 17:00 06/16/17 16:59 Hydroxyzine HCl (Vistaril Tab) 25 mg HS PRN PO 05/16/17 22:15 06/15/17 22:14 05/16/17 22:36 25 MG Objective Vital Signs Date Time Temp Pulse Resp B/P (MAP) Pulse Ox O2 Delivery O2 Flow Rate FiO2 05/16/17 20:16 36.8 92 18 141/85 (103) 93 Room Air 05/16/17 20:00 97 Room Air 05/16/17 16:00 97 Room Air 05/16/17 15:55 36.9 90 18 122/83 (96) 97 Room Air 05/16/17 12:00 Room Air 05/16/17 11:31 36.4 91 22 147/104 (118) 95 Room Air 05/16/17 08:00 Room Air 05/16/17 04:19 Room Air 05/16/17 03:12 36.8 84 18 147/88 (107) 97 Room Air Physical Exam General Appearance: + mild distress Respiratory/Chest: lungs clear, normal breath sounds Cardiovascular: regular rate, rhythm, no murmur Abdomen: normal bowel sounds, non tender, soft Neurologic/Psychiatric: alert, oriented x 3, + pertinent finding (strength 4/5 RUE and 4+/5 LUE; sensation intact; DTRs intact; slurred speech; R sided facial droop) Skin: warm/dry Laboratory Results 05/16/17 00:43 Red Blood Count 4.67, Mean Corpuscular Volume 91.6, Mean Corpuscular Hemoglobin 31.7, Mean Corpuscular Hemoglobin Concent 34.6, Mean Platelet Volume 10.5, Neutrophils (%) (Auto) 58.9, Lymphocytes (%) (Auto) 26.6, Monocytes (%) (Auto) 9.5, Eosinophils (%) (Auto) 4.2, Basophils (%) (Auto) 0.3, Neutrophils # (Auto) 6.23, Lymphocytes # (Auto) 2.81, Monocytes # (Auto) 1.00, Eosinophils # (Auto) 0.44, Basophils # (Auto) 0.03 05/16/17 10:25 Test 05/16/17 00:07 05/16/17 00:43 05/16/17 10:25 05/16/17 13:38 Creatine Kinase MB Ratio (0-3.0) White Blood Count 10.56 K/uL (4.8-10.8) Red Blood Count 4.67 M/uL (4.7-6.1) Hemoglobin 14.8 g/dL (14.0-18.0) Hematocrit 42.8 % (42-52) Mean Corpuscular Volume 91.6 fL (80-100) Mean Corpuscular Hemoglobin 31.7 pg (25-34) Mean Corpuscular Hemoglobin Concent 34.6 g/dl (32-36) Platelet Count 210 K/uL (130-400) Mean Platelet Volume 10.5 fL (7.4-10.4) Neutrophils (%) (Auto) 58.9 % Lymphocytes (%) (Auto) 26.6 % Monocytes (%) (Auto) 9.5 % Eosinophils (%) (Auto) 4.2 % Basophils (%) (Auto) 0.3 % Neutrophils # (Auto) 6.23 K/uL (1.4-6.5) Lymphocytes # (Auto) 2.81 K/uL (1.2-3.4) Monocytes # (Auto) 1.00 K/uL (0.11-0.59) Eosinophils # (Auto) 0.44 K/uL (0-0.5) Basophils # (Auto) 0.03 K/uL (0-0.2) RDW Standard Deviation 42.2 fL (36.4-46.3) RDW Coefficient of Variation 12.7 % (11.5-14.5) Immature Granulocyte % (Auto) 0.5 % Immature Granulocyte # (Auto) 0.05 K/uL (0.00-0.02) Estimated Average Glucose 120 mg/dl Hemoglobin A1c 5.8 % (4.5-5.6) Creatine Kinase MB 1.3 ng/ml (0.5-3.6) Troponin I < 0.015 ng/ml (0-0.045) Hepatitis C Antibody Screen NEG (NEG) Anion Gap 4.0 mmol/L (3-11) Est Creatinine Clear Calc Drug Dose 80.7 ml/min Estimated GFR () 91.3 Estimated GFR (Non- 78.8 BUN/Creatinine Ratio 15.8 (10-20) Calcium Level 8.7 mg/dl (8.5-10.1) Prothrombin Time 10.4 SECONDS (9.0-12.0) Prothromb Time International Ratio 1.0 (0.9-1.1) Assessment and Plan This is a 61 yoM with hx of CAD, multiple MIs, stents and TIA who presented with right UE weakness, slurred speech and right facial droop concerning for stroke vs TIA that developed that 9am 05/15. Delayed arrival to [facility] until 4pm as symptoms were waxing/waning. Stroke: out of window for TPA - tele admission - MRI brain combo - 1.5 x 0.7 cm infarct L jimenez radiata, no hemorrhagic or mass effect; mild chronic cerebral ischemic changes - CTA head and neck - no significant vessel stenosis/dissection; minimal atherosclerotic scattered changes - HBA1C 5.8 - FLP for tomorrow AM - Echo - no emboli, EF 55-60%, LV systolic function nl with no gross wall motion abnormalities, no emboli, and grade I diastolic dysfunction - consult neuro - jimenez radiata area CVA likely small vessel ischemic in nature - loading dose of Plavix 300mg po - Plavix 75mg daily - Asa 81 mg - Pravastatin 60 mg PO - Fluoxetine 10mg daily - prevent depression associated with stroke - Pt/OT/speech Non-sustained Vtach - Cardiology consulted - Echo - EF 55-60%, LV systolic function nl with no gross wall motion abnormalities, no emboli, and grade I diastolic dysfunction - no additional interventions/testing CAD/HLD - as above HTN - Metoprolol 50 mg daily held for permissive htn (sys <220 and nassar <120) - hydralazine PRN 25mg for elevated BP Polymyalgia Rheumatica - alternating dose of Prednisone 5mg and 10mg PO daily GERD - continue protonix 40 mg daily Allergies/Asthma - Loratadine 10 mg cont - Montelukast 10 mg daily and Dulera cont DVT Prophylaxis: Heparin 5000 Q8H SubQ Resident Involvement: Resident Care Provided Care Provided: Adult [facility] Medicine Reviewed: Pt Seen/Exam by Me History Resident Physician Supervision Note: I interviewed and examined the patient. Discussed with Dr. Guerrero and agree with findings and plan as documented in the note. Any exceptions or clarifications are listed here: Patient still with slurred speech, right upper extremity weakness and some right lower extremity weakness. He denies headache. Denies any new neurological symptoms. I discussed the case at length today with both neurology and cardiology. No chest pain or shortness of breath. Vitals and telemetry reviewed-no further V. tach other than the nonsustained episode overnight No acute distress, sitting in chair EOMI, right-sided facial droop RRR no murmurs gallops rubs Lungs clear to auscultation bilaterally, no wheezes crackles or rhonchi Abdomen positive bowel sounds soft nontender nondistended Extremities trace pitting edema bilaterally Neuro-cranial nerves II through XII intact except for right-sided facial droop, with tongue deviation to the right, 4+ out of 5 strength in the right upper and right lower extremities, DTRs 2+ throughout, sensation intact to light touch throughout upper and lower extremities bilaterally, positive pronator drift of the right upper and lower extremities 61-year-old male with an extensive history of CAD, TIAs, hyperlipidemia, hypertension, GERD, PMR on chronic prednisone, here with right-sided hemiparesis , found to have acute left jimenez radiata ischemic CVA. Neurology does not think this is consistent with an embolic event. Transthoracic echocardiogram without thrombus, no occult A. fib noted so far, does not need a KRISTAL. -Switch to Plavix and discontinue Brillinta, continue aspirin -Increase pravastatin to 60 mg daily with goal of increasing the 80th possible- he has had severe myalgias with all other statins in the past -Continue to hold metoprolol for now to allow permissive hypertension, however he is indeed on metoprolol tartrate 50 mg once daily as he reports noncompliance with the second dose for a long time-we'll switch to Toprol-XL upon discharge -PT/OT/speech therapy evaluations and will likely need acute rehabilitation placement tomorrow -Heparin subcutaneous for DVT prophylaxis Documented By: Lyndsey Grossman
[2017-05-16] MEDS: hydrOXYzine HCL 25 MG TAB PO PRN (22:36)
[2017-05-17] VITALS (7 sets, daily range): BP systolic 122–176; BP diastolic 77–98; PULSE 79–97; TEMP 36.5–36.9; O2SAT 90–98
[2017-05-17] MEDS: HEPARIN SOD 5000 UNIT/0.5 ML CARP SQ SCH ×3 (05:49→21:33)
[2017-05-17 07:14] LABS: BASO % 0.3 %; BASO ABS # 0.02 K/uL (0-0.2); EOS % 5.7 %; EOS ABS # 0.44 K/uL (0-0.5); IG# 0.03 K/uL (0.00-0.02); LYMPH % 32.7 %; LYMPH ABS # 2.52 K/uL (1.2-3.4); MEAN CELL VOLUME 91.5 fL (80-100); MEAN CORPUSCULAR HEMOGLOBIN 31.9 pg (25-34); MEAN CORPUSCULAR HGB CONC 34.9 g/dl (32-36); MEAN PLATELET VOLUME 10.8 fL (7.4-10.4); MONO % 10.3 %; MONO ABS # 0.79 K/uL (0.11-0.59); NEUT % 50.6 %; PLATELET COUNT 207 K/uL (130-400); RED CELL DISTRIBUTION WIDTH CV 12.4 % (11.5-14.5)
[2017-05-17 07:43] LABS: CALCIUM 8.8 mg/dl (8.5-10.1); POTASSIUM 3.8 mmol/L (3.5-5.1)
[2017-05-17] MEDS: DULERA~ORDER AWAITING ACTION SCH (08:00)
[2017-05-17] MEDS: MONTELUKAST SOD 10 MG TAB PO SCH (08:53)
[2017-05-17] MEDS: FLUOXETINE HCL 10 MG CAP PO SCH (08:55)
[2017-05-17] MEDS: CLOPIDOGREL BISULFATE 75 MG TAB PO SCH (08:55)
[2017-05-17] MEDS: ASPIRIN 81 MG ECTAB PO SCH (08:55)
[2017-05-17] MEDS ORDERED: RANITIDINE HCL 150 MG TAB PO SCH (09:00)
--- NOTE | 2017-05-17 09:39 | Neurology Progress Notes ---
Neurology Progress Note Date of Service May 17, 2017. Subjective The patient is not complaining of any pain or headache. He feels that his walking may be a little bit better but he is still worried about his arm. He feels his speech may be a little bit better. Patient states he may have some numbness along his chin on the right. Echocardiogram was unremarkable. CBC was unremarkable as was the Chem profile. Cholesterol was 275 and triglycerides 192. In the past, he has had some myalgias to other statins. He tolerates his current statin fairly well. Patient's blood pressure is improved. Nursing reports no new issues and he has an NIH stroke scale of 3 Objective Date Time Temp Pulse Resp B/P (MAP) Pulse Ox O2 Delivery O2 Flow Rate FiO2 05/17/17 07:24 36.5 87 20 138/93 (108) 98 Room Air 05/17/17 04:15 36.6 79 20 122/77 (92) 93 Room Air 05/17/17 04:03 Room Air 05/17/17 00:14 Room Air 05/16/17 23:17 36.8 78 18 126/77 (93) 95 Room Air 05/16/17 20:16 36.8 92 18 141/85 (103) 93 Room Air 05/16/17 20:00 97 Room Air 05/16/17 16:00 97 Room Air 05/16/17 15:55 36.9 90 18 122/83 (96) 97 Room Air 05/16/17 12:00 Room Air 05/16/17 11:31 36.4 91 22 147/104 (118) 95 Room Air Last 24 Hours Test 05/16/17 10:25 05/16/17 13:38 05/17/17 06:13 Sodium Level 136 mmol/L 138 mmol/L Potassium Level 3.9 mmol/L 3.8 mmol/L Chloride Level 102 mmol/L 104 mmol/L Carbon Dioxide Level 30 mmol/L 28 mmol/L Anion Gap 4.0 mmol/L 6.0 mmol/L Blood Urea Nitrogen 16 mg/dl 14 mg/dl Creatinine 1.01 mg/dl 1.00 mg/dl Est Creatinine Clear Calc Drug Dose 80.7 ml/min 82.8 ml/min Estimated GFR () 91.3 92.4 Estimated GFR (Non- 78.8 79.7 BUN/Creatinine Ratio 15.8 14.1 Random Glucose 108 mg/dl 108 mg/dl Calcium Level 8.7 mg/dl 8.8 mg/dl Prothrombin Time 10.4 SECONDS Prothromb Time International Ratio 1.0 White Blood Count 7.70 K/uL Red Blood Count 4.70 M/uL Hemoglobin 15.0 g/dL Hematocrit 43.0 % Mean Corpuscular Volume 91.5 fL Mean Corpuscular Hemoglobin 31.9 pg Mean Corpuscular Hemoglobin Concent 34.9 g/dl Platelet Count 207 K/uL Mean Platelet Volume 10.8 fL Neutrophils (%) (Auto) 50.6 % Lymphocytes (%) (Auto) 32.7 % Monocytes (%) (Auto) 10.3 % Eosinophils (%) (Auto) 5.7 % Basophils (%) (Auto) 0.3 % Neutrophils # (Auto) 3.90 K/uL Lymphocytes # (Auto) 2.52 K/uL Monocytes # (Auto) 0.79 K/uL Eosinophils # (Auto) 0.44 K/uL Basophils # (Auto) 0.02 K/uL RDW Standard Deviation 42.0 fL RDW Coefficient of Variation 12.4 % Immature Granulocyte % (Auto) 0.4 % Immature Granulocyte # (Auto) 0.03 K/uL Triglycerides Level 192 mg/dl Cholesterol Level 275 mg/dl HDL Cholesterol 36 mg/dl LDL Cholesterol, Calculated 201 mg/dl VLDL Cholesterol, Calculated 38 mg/dl Cholesterol/HDL Ratio 7.6 Exam: He is awake and alert. Speech does have dysarthria but it is much less dysarthric than yesterday. He has no aphasia. His mood is improved and affect is appropriate. Extraocular eye muscles are intact without nystagmus. He does not move the right corner of his mouth still although it may be slightly better than yesterday. Leg strength is 5/5 diffusely both proximally distally. There is no longer any weakness in the right leg. Right arm strength is 4/5 diffusely. His clumsiness is improved and he does have a little bit better strength today, compared to yesterday Current Inpatient Medications Medications (Trade) Dose Ordered Sig/Miriam Route Start Time Stop Time Status Last Admin Dose Admin Miscellaneous Information (Pharmacist Discharge Med Rec Consult) 1 ea UD PRN N/A 05/16/17 00:15 06/15/17 00:14 Acetaminophen (Tylenol Tab) 650 mg Q4H PRN PO 05/16/17 00:15 06/15/17 00:14 Al Hydrox/Mg Hydrox/Simethicone (Maalox Max Susp) 15 ml Q4H PRN PO 05/16/17 00:15 06/15/17 00:14 Magnesium Hydroxide (Milk Of Magnesia Susp) 30 ml Q12H PRN PO 05/16/17 00:15 06/15/17 00:14 Ondansetron HCl (Zofran Inj) 4 mg Q6H PRN IV 05/16/17 00:15 06/15/17 00:14 Nitroglycerin (Nitrostat Tab) 0.4 mg UD PRN SL 05/16/17 00:15 06/15/17 00:14 Morphine Sulfate (MoRPHine SULFATE INJ) 2 mg Q30M PRN IV 05/16/17 00:15 05/30/17 00:14 Polyethylene (Miralax Powder Packet) 17 gm DAILY PRN PO 05/16/17 00:15 06/15/17 00:14 Loratadine (Claritin Tab) 10 mg HS PO 05/16/17 21:00 06/15/17 20:59 05/16/17 20:12 10 MG Montelukast Sodium (Singulair Tab) 10 mg DAILY PO 05/16/17 09:00 06/15/17 08:59 05/17/17 08:53 10 MG Miscellaneous Information (Order Awaiting Action) 1 ea QS N/A 05/16/17 01:30 06/15/17 01:29 05/16/17 22:59 1 EA Aspirin (Ecotrin Tab) 81 mg QAM PO 05/16/17 09:00 06/15/17 08:59 05/17/17 08:55 81 MG Clopidogrel Bisulfate (plAVix TAB) 75 mg QAM PO 05/17/17 09:00 06/16/17 08:59 05/17/17 08:55 75 MG Heparin Sodium (Porcine) (Heparin Sq 5000 Unit/0.5ml) 5,000 unit Q8 SQ 05/16/17 22:00 06/15/17 21:59 05/17/17 05:49 5,000 UNIT Fluoxetine HCl (Prozac Cap) 10 mg QAM PO 1/19/18 09:00 06/15/17 08:59 05/17/17 08:55 10 MG Pravastatin Sodium (Pravachol Tab) 60 mg DAILY@17 PO 05/17/17 17:00 06/16/17 16:59 Hydroxyzine HCl (Vistaril Tab) 25 mg HS PRN PO 05/16/17 22:15 06/15/17 22:14 05/16/17 22:36 25 MG Ranitidine HCl (zANTac TAB) 150 mg QAM PO 05/17/17 09:00 06/16/17 08:59 05/17/17 08:54 150 MG Prednisone (PredniSONE TAB) 10 mg Q2D@0900 PO 05/17/17 09:00 06/16/17 08:59 05/17/17 08:58 10 MG Prednisone (PredniSONE TAB) 5 mg Q2D@0900 PO 05/18/17 09:00 06/17/17 08:59 Impression 1. Small acute left jimenez radiata area CVA 1-17, likely small vessel ischemic in nature. The time frame and evolution of this event speaks against embolic stroke. Echocardiogram was unremarkable and showed no source of embolus. Risk factors include hypertension, dyslipidemia, and previous history of cigarette smoking as well as genetics. Neurologic examination today is remarkable for dysarthria, weakness of the right upper extremity and a mild facial weakness on the right. There is no longer any right lower extremity weakness as was present yesterday. MRI shows a 1-1.5 centimeter acute stroke in the left jimenez radiata area. CT angiography of the head neck were unremarkable with no significant vessel stenosis. This event happened on Brilinta and aspirin I had a discussion with Dr. Matute (Stroke service) at [facility] regarding this case on May 16. 2. Coronary artery disease post MIs with multiple stents. From a cardiac standpoint, he seems stable. He is on Brilinta but I believe he is having side effects to Brilinta with shortness of breath. 3. Mild chronic cerebral ischemia seen on MRI 4. Patient has a history of some snoring and pauses of breathing and I cannot exclude sleep apnea. 5. Patient is somewhat anxious and depressed currently from his current physical condition. Plan 1. Continue 75 milligrams clopidogrel daily 2. Continue 81 milligram aspirin tablet daily 3. keep off Brilinta from a neurologic standpoint. 4. Normally, this patient would be a high-dose statin candidate but he had some myalgias to certain statins. He tolerates pravastatin well. I would recommend giving a higher dose of pravastatin. 5. Physical, occupational, and speech therapy consult 6. Consider rehabilitation hospital consult. This patient should benefit from a rehabilitation hospital stay following acute care here 7. Consider overnight polysomnogram as an outpatient 8. Continue fluoxetine 10 milligrams daily. I can address adjusting this as an outpatient. I have spoken with Dr. Grossman regarding this case including differential diagnosis and treatment options.
--- NOTE | 2017-05-17 14:25 | Family Medicine Progress Note ---
Progress Note Date of Service May 17, 2017. Subjective Pt evaluation today including: conversation w/ patient, physical exam, chart review, lab review Pain: denies any discomfort PO Intake: tolerating Voiding: no voiding problems This AM pt reports improvement in RLE strength. Still reports RUE weakness. Otherwise asymptomatic. Constitutional: No fever, No chills Respiratory: No shortness of breath Cardiovascular: No chest pain Abdomen: No pain, No nausea, No vomiting Male : No dysuria Neurologic: + weakness Medications Current Inpatient Medications Medications (Trade) Dose Ordered Sig/Miriam Route Start Time Stop Time Status Last Admin Dose Admin Miscellaneous Information (Pharmacist Discharge Med Rec Consult) 1 ea UD PRN N/A 05/16/17 00:15 06/15/17 00:14 Acetaminophen (Tylenol Tab) 650 mg Q4H PRN PO 05/16/17 00:15 06/15/17 00:14 Al Hydrox/Mg Hydrox/Simethicone (Maalox Max Susp) 15 ml Q4H PRN PO 05/16/17 00:15 06/15/17 00:14 Magnesium Hydroxide (Milk Of Magnesia Susp) 30 ml Q12H PRN PO 05/16/17 00:15 06/15/17 00:14 Ondansetron HCl (Zofran Inj) 4 mg Q6H PRN IV 05/16/17 00:15 06/15/17 00:14 Nitroglycerin (Nitrostat Tab) 0.4 mg UD PRN SL 05/16/17 00:15 06/15/17 00:14 Morphine Sulfate (MoRPHine SULFATE INJ) 2 mg Q30M PRN IV 05/16/17 00:15 05/30/17 00:14 Polyethylene (Miralax Powder Packet) 17 gm DAILY PRN PO 05/16/17 00:15 06/15/17 00:14 Loratadine (Claritin Tab) 10 mg HS PO 05/16/17 21:00 06/15/17 20:59 05/16/17 20:12 10 MG Montelukast Sodium (Singulair Tab) 10 mg DAILY PO 05/16/17 09:00 06/15/17 08:59 05/17/17 08:53 10 MG Aspirin (Ecotrin Tab) 81 mg QAM PO 05/16/17 09:00 06/15/17 08:59 05/17/17 08:55 81 MG Clopidogrel Bisulfate (plAVix TAB) 75 mg QAM PO 05/17/17 09:00 06/16/17 08:59 05/17/17 08:55 75 MG Heparin Sodium (Porcine) (Heparin Sq 5000 Unit/0.5ml) 5,000 unit Q8 SQ 05/16/17 22:00 06/15/17 21:59 05/17/17 14:56 5,000 UNIT Fluoxetine HCl (Prozac Cap) 10 mg QAM PO 05/17/17 09:00 06/15/17 08:59 05/17/17 08:55 10 MG Pravastatin Sodium (Pravachol Tab) 60 mg DAILY@17 PO 05/17/17 17:00 06/16/17 16:59 05/17/17 17:19 60 MG Hydroxyzine HCl (Vistaril Tab) 25 mg HS PRN PO 05/16/17 22:15 06/15/17 22:14 05/16/17 22:36 25 MG Prednisone (PredniSONE TAB) 10 mg Q2D@0900 PO 05/17/17 09:00 06/16/17 08:59 05/17/17 08:58 10 MG Prednisone (PredniSONE TAB) 5 mg Q2D@0900 PO 05/18/17 09:00 06/17/17 08:59 Ranitidine HCl (zANTac TAB) 150 mg HS PO 05/18/17 21:00 06/17/17 20:59 Mometasone Furoate/ Formoterol Fumar (Dulera 100-5 Mcg/Act) 2 puffs BID INH 05/17/17 21:00 06/16/17 20:59 Objective Vital Signs Date Time Temp Pulse Resp B/P (MAP) Pulse Ox O2 Delivery O2 Flow Rate FiO2 05/17/17 16:12 36.6 81 18 176/98 (124) 90 Room Air 05/17/17 13:50 92 05/17/17 12:00 Room Air 05/17/17 11:47 36.7 97 16 148/96 (113) 96 Room Air 05/17/17 08:00 Room Air 05/17/17 07:24 36.5 87 20 138/93 (108) 98 Room Air 05/17/17 04:15 36.6 79 20 122/77 (92) 93 Room Air 05/17/17 04:03 Room Air 05/17/17 00:14 Room Air 05/16/17 23:17 36.8 78 18 126/77 (93) 95 Room Air 05/16/17 20:16 36.8 92 18 141/85 (103) 93 Room Air 05/16/17 20:00 97 Room Air Physical Exam General Appearance: no apparent distress Eyes: normal inspection, sclerae normal Respiratory/Chest: lungs clear, normal breath sounds Cardiovascular: regular rate, rhythm, no murmur Abdomen: normal bowel sounds, non tender, soft Extremities: non-tender, no pedal edema Neurologic/Psychiatric: 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, alert, oriented x 3, + pertinent finding (tongue deviates to R; 4/5 strength RUE; 5/5 LUE, LLE and RLE ; sensation intact; DTR knees intact) Skin: warm/dry Laboratory Results 05/17/17 06:13 Red Blood Count 4.70, Mean Corpuscular Volume 91.5, Mean Corpuscular Hemoglobin 31.9, Mean Corpuscular Hemoglobin Concent 34.9, Mean Platelet Volume 10.8, Neutrophils (%) (Auto) 50.6, Lymphocytes (%) (Auto) 32.7, Monocytes (%) (Auto) 10.3, Eosinophils (%) (Auto) 5.7, Basophils (%) (Auto) 0.3, Neutrophils # (Auto ) 3.90, Lymphocytes # (Auto) 2.52, Monocytes # (Auto) 0.79, Eosinophils # (Auto ) 0.44, Basophils # (Auto) 0.02 05/17/17 06:13 Test 05/17/17 06:13 White Blood Count 7.70 K/uL (4.8-10.8) Red Blood Count 4.70 M/uL (4.7-6.1) Hemoglobin 15.0 g/dL (14.0-18.0) Hematocrit 43.0 % (42-52) Mean Corpuscular Volume 91.5 fL (80-100) Mean Corpuscular Hemoglobin 31.9 pg (25-34) Mean Corpuscular Hemoglobin Concent 34.9 g/dl (32-36) Platelet Count 207 K/uL (130-400) Mean Platelet Volume 10.8 fL (7.4-10.4) Neutrophils (%) (Auto) 50.6 % Lymphocytes (%) (Auto) 32.7 % Monocytes (%) (Auto) 10.3 % Eosinophils (%) (Auto) 5.7 % Basophils (%) (Auto) 0.3 % Neutrophils # (Auto) 3.90 K/uL (1.4-6.5) Lymphocytes # (Auto) 2.52 K/uL (1.2-3.4) Monocytes # (Auto) 0.79 K/uL (0.11-0.59) Eosinophils # (Auto) 0.44 K/uL (0-0.5) Basophils # (Auto) 0.02 K/uL (0-0.2) RDW Standard Deviation 42.0 fL (36.4-46.3) RDW Coefficient of Variation 12.4 % (11.5-14.5) Immature Granulocyte % (Auto) 0.4 % Immature Granulocyte # (Auto) 0.03 K/uL (0.00-0.02) Anion Gap 6.0 mmol/L (3-11) Est Creatinine Clear Calc Drug Dose 82.8 ml/min Estimated GFR () 92.4 Estimated GFR (Non- 79.7 BUN/Creatinine Ratio 14.1 (10-20) Calcium Level 8.8 mg/dl (8.5-10.1) Triglycerides Level 192 mg/dl (0-150) Cholesterol Level 275 mg/dl (0-200) HDL Cholesterol 36 mg/dl LDL Cholesterol, Calculated 201 mg/dl VLDL Cholesterol, Calculated 38 mg/dl Cholesterol/HDL Ratio 7.6 Assessment and Plan This is a 61 yoM with hx of CAD, multiple MIs, stents and TIAs, PMR on chronic prednisone with R sided weakness, facial droop and slurred speech found to have acute L jimenez radiata ischemic CVA R sided hemiparesis: L jimenez radiata ischemic CVA - improving - tele admission - MRI brain combo - 1.5 x 0.7 cm infarct L jimenez radiata, no hemorrhagic or mass effect; mild chronic cerebral ischemic changes - CTA head and neck - no significant vessel stenosis/dissection; minimal atherosclerotic scattered changes - HBA1C 5.8 - FLP for tomorrow AM - Echo - no thrombus, EF 55-60%, LV systolic function nl with no gross wall motion abnormalities, no emboli, and grade I diastolic dysfunction - No occult A. Fib noted on telemetry, does not need a KRISTAL - consult neuro - jimenez radiata area CVA likely small vessel ischemic in nature - loading dose of Plavix 300mg po - Plavix 75mg daily - Asa 81 mg - Pravastatin increased to 60 mg PO with goal of increasing to 80mg if possible given hx of severe myalgias with all other statins in the past - Fluoxetine 10mg daily - prevent depression associated with stroke - Pt/OT/speech evaluated - SPEECH: regular diet, sit upright for meals and 30 mins later, aspiration precautions can use straw, practice slow speech and precise articulation - PT/OT: recommend acute inpatient rehab Non-sustained Vtach - Cardiology consulted - Echo - EF 55-60%, LV systolic function nl with no gross wall motion abnormalities, no emboli, and grade I diastolic dysfunction - no additional interventions/testing CAD/HLD - as above HTN - Takes Metoprolol tartrate 50 mg daily held for permissive htn (sys <220 and nassar <120) - pt confirmed to be taking metoprolol tartrate 50mg once daily which was initially prescribed as BID but pt was non-complaint and thus decreased to once daily - Switch to Toprol XL 12.5mg QAM on DC - hydralazine PRN 25mg for elevated BP Polymyalgia Rheumatica - alternating dose of Prednisone 5mg and 10mg PO daily GERD - Given occasional hx of acid reflux and intermittent usage of Protonix 40mg, dced after discussion of risks/benefits with pt - Started on Ranitidine 150mg HS Allergies/Asthma - Loratadine 10 mg cont - Montelukast 10 mg daily and Dulera cont DVT Prophylaxis: Heparin 5000 Q8H SubQ Dispo: pending placement bed availability and insurance authorization Resident Involvement: Resident Care Provided Care Provided: Adult Hospital Medicine Reviewed: Pt Seen/Exam by Me History Resident Physician Supervision Note: I interviewed and examined the patient. Discussed with Dr. Guerrero and agree with findings and plan as documented in the note. Any exceptions or clarifications are listed here: Improved today with increased strength in the right upper and lower extremities , less slurred speech today. Denies any other issues and is feeling better with his mood. No myalgias Vitals and telemetry reviewed-no further V. tach No acute distress, sitting in chair EOMI, right-sided facial droop is less evident today RRR no murmurs gallops rubs Lungs clear to auscultation bilaterally, no wheezes crackles or rhonchi Abdomen positive bowel sounds soft nontender nondistended Extremities trace pitting edema bilaterally Neuro-cranial nerves II through XII intact except for right-sided facial droop which is much improved, with tongue deviation to the right, 4+ out of 5 strength in the right upper and 5 out of 5 strength in the bilateral lower extremities 61-year-old male with an extensive history of CAD, TIAs, hyperlipidemia, hypertension, GERD, PMR on chronic prednisone, here with right-sided hemiparesis , found to have acute left jimenez radiata ischemic CVA. Neurology does not think this is consistent with an embolic event. Transthoracic echocardiogram without thrombus, no occult A. fib noted so far, does not need a KRISTAL. -Switched to Plavix and discontinued Brillinta, continue aspirin 81 mg daily -Increased pravastatin to 60 mg daily with goal of increasing the 80th possible- he has had severe myalgias with all other statins in the past-consider restarting Crestor at a low dose and titrating up as tolerated as an outpatient after rehabilitation, but don't want to start it now in case it causes him severe myalgias while he is trying to recover -Continue to hold metoprolol for now to allow permissive hypertension, however he is indeed on metoprolol tartrate 50 mg once daily as he reports noncompliance with the second dose for a long time-we'll switch to Toprol-XL 12.5 mg daily upon discharge -PT/OT/speech therapy evaluations and needs acute rehabilitation placement-no bed available today and awaiting insurance authorization -Heparin subcutaneous for DVT prophylaxis Documented By: Lyndsey Grossman
[2017-05-17] MEDS: PRAVASTATIN SOD 40 MG TAB PO SCH (17:19)
[2017-05-17] MEDS: MOMETASONE/FORMOTEROL (DULERA) INH INH SCH (21:00)
[2017-05-17] MEDS: LORATADINE 10 MG TAB PO SCH (21:34)
[2017-05-17] MEDS: hydrOXYzine HCL 25 MG TAB PO PRN (21:35)
[2017-05-18] VITALS (8 sets, daily range): BP systolic 125–148; BP diastolic 76–99; PULSE 78–94; TEMP 36.4–37.7; O2SAT 94–98
[2017-05-18] MEDS: HEPARIN SOD 5000 UNIT/0.5 ML CARP SQ SCH ×3 (05:50→21:45)
[2017-05-18 06:56] LABS: BASO % 0.2 %; BASO ABS # 0.02 K/uL (0-0.2); EOS % 4.3 %; EOS ABS # 0.37 K/uL (0-0.5); HEMATOCRIT 44.2 % (42-52); HEMOGLOBIN 15.3 g/dL (14.0-18.0); IG# 0.02 K/uL (0.00-0.02); LYMPH ABS # 2.78 K/uL (1.2-3.4); MEAN CELL VOLUME 91.5 fL (80-100); MEAN CORPUSCULAR HEMOGLOBIN 31.7 pg (25-34); MEAN CORPUSCULAR HGB CONC 34.6 g/dl (32-36); MEAN PLATELET VOLUME 10.6 fL (7.4-10.4); MONO % 11.5 %; NEUT % 51.8 %; PLATELET COUNT 227 K/uL (130-400); RED CELL DISTRIBUTION WIDTH CV 12.5 % (11.5-14.5); RED CELL DISTRIBUTION WIDTH SD 42.2 fL (36.4-46.3); WHITE BLOOD COUNT 8.69 K/uL (4.8-10.8)
[2017-05-18 07:32] LABS: CALCIUM 9.1 mg/dl (8.5-10.1); CREATININE 0.82 mg/dl (0.60-1.40); POTASSIUM 3.5 mmol/L (3.5-5.1)
[2017-05-18] MEDS: CLOPIDOGREL BISULFATE 75 MG TAB PO SCH (08:24)
[2017-05-18] MEDS: MONTELUKAST SOD 10 MG TAB PO SCH (08:24)
[2017-05-18] MEDS: ASPIRIN 81 MG ECTAB PO SCH (08:24)
[2017-05-18] MEDS: FLUOXETINE HCL 10 MG CAP PO SCH (08:25)
[2017-05-18] MEDS: MOMETASONE/FORMOTEROL (DULERA) INH INH SCH ×2 (08:25→20:36)
--- NOTE | 2017-05-18 10:54 | Family Medicine Progress Note ---
Progress Note Date of Service May 18, 2017. Subjective Pt evaluation today including: conversation w/ patient, physical exam, chart review, lab review Pain: denies any pain this AM PO Intake: tolerating Voiding: no voiding problems This AM reports improving weakness in R arm. R leg feels weak when he walks and somewhat unsteady. Independent with walker in ambulating to the bathroom and doing laps in the hallway. Reports working on speech and PT/Ot exercises as well. Constitutional: No fever, No chills Respiratory: No shortness of breath Cardiovascular: No chest pain Abdomen: No pain, No nausea, No vomiting Male : No dysuria Neurologic: + weakness Medications Current Inpatient Medications Medications (Trade) Dose Ordered Sig/Miriam Route Start Time Stop Time Status Last Admin Dose Admin Miscellaneous Information (Pharmacist Discharge Med Rec Consult) 1 ea UD PRN N/A 05/16/17 00:15 06/15/17 00:14 Acetaminophen (Tylenol Tab) 650 mg Q4H PRN PO 05/16/17 00:15 06/15/17 00:14 Al Hydrox/Mg Hydrox/Simethicone (Maalox Max Susp) 15 ml Q4H PRN PO 05/16/17 00:15 06/15/17 00:14 Magnesium Hydroxide (Milk Of Magnesia Susp) 30 ml Q12H PRN PO 05/16/17 00:15 06/15/17 00:14 Ondansetron HCl (Zofran Inj) 4 mg Q6H PRN IV 05/16/17 00:15 06/15/17 00:14 Nitroglycerin (Nitrostat Tab) 0.4 mg UD PRN SL 05/16/17 00:15 06/15/17 00:14 Morphine Sulfate (MoRPHine SULFATE INJ) 2 mg Q30M PRN IV 05/16/17 00:15 05/30/17 00:14 Polyethylene (Miralax Powder Packet) 17 gm DAILY PRN PO 05/16/17 00:15 06/15/17 00:14 Loratadine (Claritin Tab) 10 mg HS PO 05/16/17 21:00 06/15/17 20:59 05/17/17 21:34 10 MG Montelukast Sodium (Singulair Tab) 10 mg DAILY PO 05/16/17 09:00 2/17/18 08:59 05/18/17 08:24 10 MG Aspirin (Ecotrin Tab) 81 mg QAM PO 05/16/17 09:00 06/15/17 08:59 05/18/17 08:24 81 MG Clopidogrel Bisulfate (plAVix TAB) 75 mg QAM PO 05/17/17 09:00 06/16/17 08:59 05/18/17 08:24 75 MG Heparin Sodium (Porcine) (Heparin Sq 5000 Unit/0.5ml) 5,000 unit Q8 SQ 05/16/17 22:00 06/15/17 21:59 05/18/17 05:50 5,000 UNIT Fluoxetine HCl (Prozac Cap) 10 mg QAM PO 05/17/17 09:00 06/15/17 08:59 05/18/17 08:25 10 MG Pravastatin Sodium (Pravachol Tab) 60 mg DAILY@17 PO 05/17/17 17:00 06/16/17 16:59 05/17/17 17:19 60 MG Hydroxyzine HCl (Vistaril Tab) 25 mg HS PRN PO 05/16/17 22:15 06/15/17 22:14 05/17/17 21:35 25 MG Prednisone (PredniSONE TAB) 10 mg Q2D@0900 PO 05/17/17 09:00 06/16/17 08:59 05/17/17 08:58 10 MG Prednisone (PredniSONE TAB) 5 mg Q2D@0900 PO 05/18/17 09:00 06/17/17 08:59 05/18/17 08:25 5 MG Ranitidine HCl (zANTac TAB) 150 mg HS PO 05/18/17 21:00 06/17/17 20:59 Mometasone Furoate/ Formoterol Fumar (Dulera 100-5 Mcg/Act) 2 puffs BID INH 05/17/17 21:00 06/16/17 20:59 05/18/17 08:25 2 PUFFS Objective Vital Signs Date Time Temp Pulse Resp B/P (MAP) Pulse Ox O2 Delivery O2 Flow Rate FiO2 05/18/17 08:00 Room Air 05/18/17 07:19 36.4 94 20 137/93 (108) 96 Room Air 05/18/17 04:00 Room Air 05/18/17 03:25 36.7 93 18 125/80 (95) 95 05/18/17 00:19 36.8 78 16 148/84 (105) 97 Room Air 05/18/17 00:00 Room Air 05/17/17 20:00 Room Air 05/17/17 19:18 36.9 83 18 126/83 (97) 94 Room Air 05/17/17 16:12 36.6 81 18 176/98 (124) 90 Room Air 05/17/17 16:00 90 Room Air 05/17/17 13:50 92 05/17/17 12:00 Room Air 05/17/17 11:47 36.7 97 16 148/96 (113) 96 Room Air Laboratory Results 05/18/17 06:14 Red Blood Count 4.83, Mean Corpuscular Volume 91.5, Mean Corpuscular Hemoglobin 31.7, Mean Corpuscular Hemoglobin Concent 34.6, Mean Platelet Volume 10.6, Neutrophils (%) (Auto) 51.8, Lymphocytes (%) (Auto) 32.0, Monocytes (%) (Auto) 11.5, Eosinophils (%) (Auto) 4.3, Basophils (%) (Auto) 0.2, Neutrophils # (Auto ) 4.50, Lymphocytes # (Auto) 2.78, Monocytes # (Auto) 1.00, Eosinophils # (Auto ) 0.37, Basophils # (Auto) 0.02 05/18/17 06:14 Test 05/18/17 06:14 White Blood Count 8.69 K/uL (4.8-10.8) Red Blood Count 4.83 M/uL (4.7-6.1) Hemoglobin 15.3 g/dL (14.0-18.0) Hematocrit 44.2 % (42-52) Mean Corpuscular Volume 91.5 fL (80-100) Mean Corpuscular Hemoglobin 31.7 pg (25-34) Mean Corpuscular Hemoglobin Concent 34.6 g/dl (32-36) Platelet Count 227 K/uL (130-400) Mean Platelet Volume 10.6 fL (7.4-10.4) Neutrophils (%) (Auto) 51.8 % Lymphocytes (%) (Auto) 32.0 % Monocytes (%) (Auto) 11.5 % Eosinophils (%) (Auto) 4.3 % Basophils (%) (Auto) 0.2 % Neutrophils # (Auto) 4.50 K/uL (1.4-6.5) Lymphocytes # (Auto) 2.78 K/uL (1.2-3.4) Monocytes # (Auto) 1.00 K/uL (0.11-0.59) Eosinophils # (Auto) 0.37 K/uL (0-0.5) Basophils # (Auto) 0.02 K/uL (0-0.2) RDW Standard Deviation 42.2 fL (36.4-46.3) RDW Coefficient of Variation 12.5 % (11.5-14.5) Immature Granulocyte % (Auto) 0.2 % Immature Granulocyte # (Auto) 0.02 K/uL (0.00-0.02) Anion Gap 10.0 mmol/L (3-11) Est Creatinine Clear Calc Drug Dose 100.9 ml/min Estimated GFR () 109.1 Estimated GFR (Non- 94.1 BUN/Creatinine Ratio 16.4 (10-20) Calcium Level 9.1 mg/dl (8.5-10.1) Assessment and Plan This is a 61 yoM with hx of CAD, multiple MIs, stents and TIAs, PMR on chronic prednisone with R sided weakness, facial droop and slurred speech found to have acute L jimenez radiata ischemic CVA. No concern for embolic event per neurology. TTE without thrombus, no occult Afib noted so far on telemetry, does not need a KRISTAL. R sided hemiparesis: L jimenez radiata ischemic CVA - improving - tele admission - MRI brain combo - 1.5 x 0.7 cm infarct L jimenez radiata, no hemorrhagic or mass effect; mild chronic cerebral ischemic changes - CTA head and neck - no significant vessel stenosis/dissection; minimal atherosclerotic scattered changes - HBA1C 5.8 - FLP: trig 192, total cholesterol 275, LDL 201, HDL 26 - Echo - no thrombus, EF 55-60%, LV systolic function nl with no gross wall motion abnormalities, no emboli, and grade I diastolic dysfunction - No occult A. Fib noted on telemetry, does not need a KRISTAL - consult neuro - jimenez radiata area CVA likely small vessel ischemic in nature - loading dose of Plavix 300mg po - Plavix 75mg daily - Asa 81 mg - Pravastatin increased to 60 mg PO with goal of increasing to 80mg if possible given hx of severe myalgias with all other statins in the past - Fluoxetine 10mg daily - prevent depression associated with stroke - Pt/OT/speech evaluated - SPEECH: regular diet, sit upright for meals and 30 mins later, aspiration precautions can use straw, practice slow speech and precise articulation - PT/OT: recommend acute inpatient rehab Non-sustained Vtach - Cardiology consulted - Echo - EF 55-60%, LV systolic function nl with no gross wall motion abnormalities, no emboli, and grade I diastolic dysfunction - no additional interventions/testing CAD/HLD - as above HTN - Takes Metoprolol tartrate 50 mg daily held for permissive htn (sys <220 and nassar <120) - pt confirmed to be taking metoprolol tartrate 50mg once daily which was initially prescribed as BID but pt was non-complaint and thus decreased to once daily - Started on Toprol XL 12.5mg QAM - hydralazine PRN 25mg for elevated BP Polymyalgia Rheumatica - alternating dose of Prednisone 5mg and 10mg PO daily GERD - Given occasional hx of acid reflux and intermittent usage of Protonix 40mg, dced after discussion of risks/benefits with pt - Started on Ranitidine 150mg HS Allergies/Asthma - Loratadine 10 mg cont - Montelukast 10 mg daily and Dulera cont DVT Prophylaxis: Heparin 5000 Q8H SubQ Dispo: pending placement bed availability and insurance authorization Resident Involvement: Resident Care Provided Care Provided: Adult Hospital Medicine Reviewed: Pt Seen/Exam by Me History Resident Physician Supervision Note: I interviewed and examined the patient. Discussed with Dr. Guerrero and agree with findings and plan as documented in the note. Any exceptions or clarifications are listed here: Doing well today. Denies chest pain. Is working on his speech therapy and occupational therapy exercises. Awaiting placement at rehabilitation. No significant events on telemetry except sinus tachycardia at times. Vitals and telemetry reviewed-no further V. tach No acute distress, sitting in chair EOMI, mild right-sided facial droop RRR no murmurs gallops rubs Lungs clear to auscultation bilaterally, no wheezes crackles or rhonchi Abdomen positive bowel sounds soft nontender nondistended Extremities trace pitting edema bilaterally Neuro-cranial nerves II through XII intact except for right-sided facial droop which is much improved, with tongue deviation to the right, 4+ out of 5 strength in the right upper and 5 out of 5 strength in the bilateral lower extremities 61-year-old male with an extensive history of CAD, TIAs, hyperlipidemia, hypertension, GERD, PMR on chronic prednisone, here with right-sided hemiparesis , found to have acute left jimenez radiata ischemic CVA. Neurology does not think this is consistent with an embolic event. Transthoracic echocardiogram without thrombus, no occult A. fib noted so far, does not need a KRISTAL. -Switched to Plavix and discontinued Brillinta, continue aspirin 81 mg daily -Increased pravastatin to 60 mg daily with goal of increasing the 80th possible- he has had severe myalgias with all other statins in the past-consider restarting Crestor at a low dose and titrating up as tolerated as an outpatient after rehabilitation, but don't want to start it now in case it causes him severe myalgias while he is trying to recover -Metoprolol was being held to allow permissive hypertension, but with intermittent sinus tachycardia and significant history of CAD, we'll go ahead and start low-dose Toprol-XL 12.5 mg daily in the morning -PT/OT/speech therapy evaluations and needs acute rehabilitation placement-no bed available today and awaiting insurance authorization -Heparin subcutaneous for DVT prophylaxis -Continue on telemetry to monitor for 1 more day for occult A. fib, but can likely transfer to medical floor tomorrow Documented By: Lyndsey Grossman
[2017-05-18] MEDS: PRAVASTATIN SOD 40 MG TAB PO SCH (16:39)
[2017-05-18] MEDS: RANITIDINE HCL 150 MG TAB PO SCH (20:36)
[2017-05-18] MEDS: LORATADINE 10 MG TAB PO SCH (20:36)
[2017-05-18] MEDS: hydrOXYzine HCL 25 MG TAB PO PRN (21:55)
[2017-05-19] VITALS (7 sets, daily range): BP systolic 107–152; BP diastolic 70–99; PULSE 78–120; TEMP 36.4–36.7; O2SAT 95–96
[2017-05-19] MEDS: HEPARIN SOD 5000 UNIT/0.5 ML CARP SQ SCH ×3 (06:00→21:53)
[2017-05-19 06:33] LABS: BASO % 0.1 %; BASO ABS # 0.01 K/uL (0-0.2); EOS % 4.3 %; EOS ABS # 0.32 K/uL (0-0.5); HEMATOCRIT 43.7 % (42-52); HEMOGLOBIN 14.7 g/dL (14.0-18.0); IG# 0.02 K/uL (0.00-0.02); LYMPH % 36.8 %; LYMPH ABS # 2.74 K/uL (1.2-3.4); MEAN CELL VOLUME 92.8 fL (80-100); MEAN CORPUSCULAR HEMOGLOBIN 31.2 pg (25-34); MEAN CORPUSCULAR HGB CONC 33.6 g/dl (32-36); MEAN PLATELET VOLUME 10.6 fL (7.4-10.4); MONO % 10.1 %; MONO ABS # 0.75 K/uL (0.11-0.59); NEUT % 48.4 %; PLATELET COUNT 217 K/uL (130-400); RED CELL DISTRIBUTION WIDTH CV 12.7 % (11.5-14.5); RED CELL DISTRIBUTION WIDTH SD 42.9 fL (36.4-46.3); WHITE BLOOD COUNT 7.44 K/uL (4.8-10.8)
[2017-05-19 07:11] LABS: CALCIUM 8.7 mg/dl (8.5-10.1); CREATININE 1.07 mg/dl (0.60-1.40)
[2017-05-19] MEDS: MOMETASONE/FORMOTEROL (DULERA) INH INH SCH ×2 (08:31→19:59)
[2017-05-19] MEDS: CLOPIDOGREL BISULFATE 75 MG TAB PO SCH (08:33)
[2017-05-19] MEDS: ASPIRIN 81 MG ECTAB PO SCH (08:33)
[2017-05-19] MEDS: METOPROLOL SUCC 25MG EXT REL TAB PO SCH (08:33)
[2017-05-19] MEDS: MONTELUKAST SOD 10 MG TAB PO SCH (08:33)
[2017-05-19] MEDS: FLUOXETINE HCL 10 MG CAP PO SCH (08:33)
--- NOTE | 2017-05-19 11:26 | Family Medicine Progress Note ---
Progress Note Date of Service May 19, 2017. Subjective Pt evaluation today including: conversation w/ patient, physical exam, chart review, lab review Pain: denies any discomfort PO Intake: tolerating Voiding: no voiding problems Reports weakness and speech about the same. Denies unsteadiness. o/w asymptomatic Constitutional: No fever, No chills Respiratory: No shortness of breath Cardiovascular: No chest pain Abdomen: No pain, No nausea, No vomiting Male : No dysuria Neurologic: + weakness Medications Current Inpatient Medications Medications (Trade) Dose Ordered Sig/Miriam Route Start Time Stop Time Status Last Admin Dose Admin Miscellaneous Information (Pharmacist Discharge Med Rec Consult) 1 ea UD PRN N/A 05/16/17 00:15 06/15/17 00:14 Acetaminophen (Tylenol Tab) 650 mg Q4H PRN PO 05/16/17 00:15 06/15/17 00:14 Al Hydrox/Mg Hydrox/Simethicone (Maalox Max Susp) 15 ml Q4H PRN PO 05/16/17 00:15 06/15/17 00:14 Magnesium Hydroxide (Milk Of Magnesia Susp) 30 ml Q12H PRN PO 05/16/17 00:15 06/15/17 00:14 Ondansetron HCl (Zofran Inj) 4 mg Q6H PRN IV 05/16/17 00:15 06/15/17 00:14 Nitroglycerin (Nitrostat Tab) 0.4 mg UD PRN SL 05/16/17 00:15 06/15/17 00:14 Morphine Sulfate (MoRPHine SULFATE INJ) 2 mg Q30M PRN IV 05/16/17 00:15 05/30/17 00:14 Polyethylene (Miralax Powder Packet) 17 gm DAILY PRN PO 05/16/17 00:15 06/15/17 00:14 Loratadine (Claritin Tab) 10 mg HS PO 05/16/17 21:00 06/15/17 20:59 05/18/17 20:36 10 MG Montelukast Sodium (Singulair Tab) 10 mg DAILY PO 05/16/17 09:00 06/15/17 08:59 05/19/17 08:33 10 MG Aspirin (Ecotrin Tab) 81 mg QAM PO 05/16/17 09:00 06/15/17 08:59 05/19/17 08:33 81 MG Clopidogrel Bisulfate (plAVix TAB) 75 mg QAM PO 05/17/17 09:00 06/16/17 08:59 05/19/17 08:33 75 MG Heparin Sodium (Porcine) (Heparin Sq 5000 Unit/0.5ml) 5,000 unit Q8 SQ 05/16/17 22:00 06/15/17 21:59 05/19/17 06:00 5,000 UNIT Fluoxetine HCl (Prozac Cap) 10 mg QAM PO 05/17/17 09:00 06/15/17 08:59 05/19/17 08:33 10 MG Pravastatin Sodium (Pravachol Tab) 60 mg DAILY@17 PO 05/17/17 17:00 06/16/17 16:59 05/18/17 16:39 60 MG Hydroxyzine HCl (Vistaril Tab) 25 mg HS PRN PO 05/16/17 22:15 06/15/17 22:14 05/18/17 21:55 25 MG Prednisone (PredniSONE TAB) 10 mg Q2D@0900 PO 05/17/17 09:00 06/16/17 08:59 05/19/17 08:33 10 MG Prednisone (PredniSONE TAB) 5 mg Q2D@0900 PO 05/18/17 09:00 06/17/17 08:59 05/18/17 08:25 5 MG Ranitidine HCl (zANTac TAB) 150 mg HS PO 05/18/17 21:00 06/17/17 20:59 05/18/17 20:36 150 MG Mometasone Furoate/ Formoterol Fumar (Dulera 100-5 Mcg/Act) 2 puffs BID INH 05/17/17 21:00 06/16/17 20:59 05/19/17 08:31 2 PUFFS Metoprolol Succinate (Toprol Xl Tab) 12.5 mg QAM PO 05/19/17 09:00 06/18/17 08:59 05/19/17 08:33 12.5 MG Objective Vital Signs Date Time Temp Pulse Resp B/P (MAP) Pulse Ox O2 Delivery O2 Flow Rate FiO2 05/19/17 08:00 Room Air 05/19/17 07:03 36.4 78 20 148/98 (115) 96 Room Air 05/19/17 04:00 Room Air 05/19/17 03:37 36.5 81 81 127/81 (96) 95 05/19/17 00:00 Room Air 05/18/17 23:44 36.5 84 18 125/85 (98) 95 05/18/17 20:15 36.9 91 20 139/99 (112) 94 05/18/17 20:00 Room Air 05/18/17 17:02 36.6 05/18/17 16:15 37.7 88 20 140/90 (107) 95 Room Air 05/18/17 16:00 Room Air 05/18/17 12:28 36.5 78 18 132/76 (94) 98 05/18/17 12:00 Room Air Physical Exam General Appearance: no apparent distress Eyes: normal inspection, sclerae normal Respiratory/Chest: lungs clear, normal breath sounds Cardiovascular: regular rate, rhythm, no murmur Abdomen: normal bowel sounds, non tender, soft Extremities: no pedal edema, + pertinent finding (L achilles tendon TTP) Neurologic/Psychiatric: experimental technician 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 tested, alert, oriented x 3, + pertinent finding (5/5 strength RUE; 5/5 strength LUE, LLE, RLE; sensation intact; DTR knees intact) Laboratory Results 05/19/17 06:16 Red Blood Count 4.71, Mean Corpuscular Volume 92.8, Mean Corpuscular Hemoglobin 31.2, Mean Corpuscular Hemoglobin Concent 33.6, Mean Platelet Volume 10.6, Neutrophils (%) (Auto) 48.4, Lymphocytes (%) (Auto) 36.8, Monocytes (%) (Auto) 10.1, Eosinophils (%) (Auto) 4.3, Basophils (%) (Auto) 0.1, Neutrophils # (Auto ) 3.60, Lymphocytes # (Auto) 2.74, Monocytes # (Auto) 0.75, Eosinophils # (Auto ) 0.32, Basophils # (Auto) 0.01 05/19/17 06:16 05/19/17 07:28 Test 05/19/17 06:16 White Blood Count 7.44 K/uL (4.8-10.8) Red Blood Count 4.71 M/uL (4.7-6.1) Hemoglobin 14.7 g/dL (14.0-18.0) Hematocrit 43.7 % (42-52) Mean Corpuscular Volume 92.8 fL (80-100) Mean Corpuscular Hemoglobin 31.2 pg (25-34) Mean Corpuscular Hemoglobin Concent 33.6 g/dl (32-36) Platelet Count 217 K/uL (130-400) Mean Platelet Volume 10.6 fL (7.4-10.4) Neutrophils (%) (Auto) 48.4 % Lymphocytes (%) (Auto) 36.8 % Monocytes (%) (Auto) 10.1 % Eosinophils (%) (Auto) 4.3 % Basophils (%) (Auto) 0.1 % Neutrophils # (Auto) 3.60 K/uL (1.4-6.5) Lymphocytes # (Auto) 2.74 K/uL (1.2-3.4) Monocytes # (Auto) 0.75 K/uL (0.11-0.59) Eosinophils # (Auto) 0.32 K/uL (0-0.5) Basophils # (Auto) 0.01 K/uL (0-0.2) RDW Standard Deviation 42.9 fL (36.4-46.3) RDW Coefficient of Variation 12.7 % (11.5-14.5) Immature Granulocyte % (Auto) 0.3 % Immature Granulocyte # (Auto) 0.02 K/uL (0.00-0.02) Anion Gap 5.0 mmol/L (3-11) Est Creatinine Clear Calc Drug Dose 76.5 ml/min Estimated GFR () 85.2 Estimated GFR (Non- 73.5 BUN/Creatinine Ratio 11.0 (10-20) Calcium Level 8.7 mg/dl (8.5-10.1) Assessment and Plan This is a 61 yoM with hx of CAD, multiple MIs, stents and TIAs, PMR on chronic prednisone with R sided weakness, facial droop and slurred speech found to have acute L jimenez radiata ischemic CVA. No concern for embolic event per neurology. TTE without thrombus, no occult Afib noted so far on telemetry, does not need a KRISTAL. R sided hemiparesis: L jimenez radiata ischemic CVA - improving - MRI brain combo - 1.5 x 0.7 cm infarct L jimenez radiata, no hemorrhagic or mass effect; mild chronic cerebral ischemic changes - CTA head and neck - no significant vessel stenosis/dissection; minimal atherosclerotic scattered changes - HBA1C 5.8 - FLP: trig 192, total cholesterol 275, LDL 201, HDL 26 - Echo - no thrombus, EF 55-60%, LV systolic function nl with no gross wall motion abnormalities, no emboli, and grade I diastolic dysfunction - No occult A. Fib noted on telemetry, does not need a KRISTAL - consult neuro - jimenez radiata area CVA likely small vessel ischemic in nature - loading dose of Plavix 300mg po - Plavix 75mg daily - Asa 81 mg - Pravastatin increased to 80 mg PO given hx of severe myalgias with all other statins in the past - Fluoxetine 10mg daily - prevent depression associated with stroke - Pt/OT/speech evaluated - SPEECH: regular diet, sit upright for meals and 30 mins later, aspiration precautions can use straw, practice slow speech and precise articulation - PT/OT: recommend acute inpatient rehab Non-sustained Vtach resolved; no afib on telemetry - Cardiology consulted - Echo - EF 55-60%, LV systolic function nl with no gross wall motion abnormalities, no emboli, and grade I diastolic dysfunction - no additional interventions/testing CAD/HLD - as above HTN - Takes Metoprolol tartrate 50 mg daily held for permissive htn (sys <220 and nassar <120) - pt confirmed to be taking metoprolol tartrate 50mg once daily which was initially prescribed as BID but pt was non-complaint and thus decreased to once daily - Started on Toprol XL 12.5mg QAM to be held for SBP <110 - hydralazine PRN 25mg for elevated BP Polymyalgia Rheumatica - alternating dose of Prednisone 5mg and 10mg PO daily GERD - Given occasional hx of acid reflux and intermittent usage of Protonix 40mg, dced after discussion of risks/benefits with pt - Started on Ranitidine 150mg HS Allergies/Asthma - Loratadine 10 mg cont - Montelukast 10 mg daily and Dulera cont DVT Prophylaxis: Heparin 5000 Q8H SubQ Dispo: pending placement bed availability and insurance authorization Resident Involvement: Resident Care Provided Care Provided: Adult Hospital Medicine Reviewed: Pt Seen/Exam by Me History Resident Physician Supervision Note: I interviewed and examined the patient. Discussed with Dr. Guerrero and agree with findings and plan as documented in the note. Any exceptions or clarifications are listed here: No new complaints, but still c/o weakness in right hand. No CP. No A-fib on tele. BPs acceptable but low at times since starting Toprol XL. Right calf cramping at times, but no other myalgias. Vitals and telemetry reviewed No acute distress, sitting in chair EOMI, mild right-sided facial droop RRR no murmurs gallops rubs Lungs clear to auscultation bilaterally, no wheezes crackles or rhonchi Abdomen positive bowel sounds soft nontender nondistended Extremities trace pitting edema bilaterally in legs, Right hand with 2+ nonpitting edema Neuro-cranial nerves II through XII intact except for right-sided facial droop which is stable, with tongue deviation to the right, 5/5 strength in the right upper ext except 4/5 in right wrist flexion/extension and interosseous dorsi, 5/ 5 strength in LUE, and 5 out of 5 strength in the bilateral lower extremities 61-year-old male with an extensive history of CAD, TIAs, hyperlipidemia, hypertension, GERD, PMR on chronic prednisone, here with right-sided hemiparesis , found to have acute left jimenez radiata ischemic CVA. Neurology does not think this is consistent with an embolic event. Transthoracic echocardiogram without thrombus, no occult A. fib noted so far, does not need a KRISTAL. -Switched to Plavix and discontinued Brillinta, continue aspirin 81 mg daily -Increased pravastatin again today to 80 mg daily -he has had severe myalgias with all other statins in the past-consider restarting Crestor at a low dose and titrating up as tolerated as an outpatient after rehabilitation, but don't want to start it now in case it causes him severe myalgias while he is trying to recover -continue low-dose Toprol-XL 12.5 mg daily in the morning (to replace home tartrate 50) -PT/OT/speech therapy evaluations and needs acute rehabilitation placement- still no bed available today and awaiting insurance authorization -Heparin subcutaneous for DVT prophylaxis -tx to medical floor today Documented By: Lyndsey Grossman
[2017-05-19] MEDS: PRAVASTATIN SOD 40 MG TAB PO SCH (16:45)
[2017-05-19] MEDS: LORATADINE 10 MG TAB PO SCH (22:07)
[2017-05-19] MEDS: hydrOXYzine HCL 25 MG TAB PO PRN (22:08)
[2017-05-19] MEDS: RANITIDINE HCL 150 MG TAB PO SCH (22:08)
[2017-05-20] MEDS: HEPARIN SOD 5000 UNIT/0.5 ML CARP SQ SCH ×3 (05:34→22:14)
[2017-05-20 07:01] VITALS: BP 132/90; PULSE 81; TEMP 36.5; O2SAT 96
[2017-05-20] MEDS: MOMETASONE/FORMOTEROL (DULERA) INH INH SCH ×2 (07:32→22:13)
[2017-05-20] MEDS: MONTELUKAST SOD 10 MG TAB PO SCH (07:32)
[2017-05-20] MEDS: CLOPIDOGREL BISULFATE 75 MG TAB PO SCH (07:32)
[2017-05-20] MEDS: ASPIRIN 81 MG ECTAB PO SCH (07:32)
[2017-05-20] MEDS: METOPROLOL SUCC 25MG EXT REL TAB PO SCH (07:32)
[2017-05-20] MEDS: FLUOXETINE HCL 10 MG CAP PO SCH (07:33)
[2017-05-20] MEDS: PRAVASTATIN SOD 40 MG TAB PO SCH (16:34)
--- NOTE | 2017-05-20 19:27 | Family Medicine Progress Note ---
Progress Note Date of Service May 20, 2017. Subjective Pt evaluation today including: conversation w/ patient, physical exam, chart review, lab review Pain: denies any discomfort this AM PO Intake: tolerating Voiding: no voiding problems This AM reports persistent weakness. Otherwise no discomfort reported Constitutional: No fever, No chills Respiratory: No shortness of breath Cardiovascular: No chest pain Abdomen: No pain, No nausea, No vomiting Male : No dysuria Neurologic: + weakness Medications Reported Home Medications Medications Dose Route/Sig Max Daily Dose Days Date Category Claritin (Loratadine) 10 Mg Tab 10 Mg PO HS 05/15/17 Reported Brilinta (Ticagrelor) 90 Mg Tab 90 Mg PO BID 05/15/17 Reported Protonix (Pantoprazole Sodium) 40 Mg Tab 40 Mg PO DAILY 05/15/17 Reported Prednisone 5 Mg Tab 5 Mg PO DAILY 05/15/17 Reported Pravachol (Pravastatin Sodium) 20 Mg Tab 40 Mg PO HS 05/15/17 Reported Nitrostat (Nitroglycerin) 0.4 Mg Tab 1 Tab SL UD 05/15/17 Reported Dulera 200/5 Mcg (Mometasone Furoate-Formoterol) 1 Aer Aer 2 Puffs INH BID 30 05/15/17 Reported Montelukast Sodium 10 Mg Tab 1 Tab PO DAILY 30 05/15/17 Reported Lopressor (Metoprolol Tartrate) 50 Mg Tab 50 Mg PO DAILY 05/15/17 Reported Objective Vital Signs Date Time Temp Pulse Resp B/P (MAP) Pulse Ox O2 Delivery O2 Flow Rate FiO2 05/20/17 16:00 Room Air 05/20/17 08:00 Room Air 05/20/17 07:01 36.5 81 20 132/90 (104) 96 Room Air 05/19/17 23:35 36.7 79 18 142/99 (113) 96 Room Air 05/19/17 23:30 Room Air Physical Exam General Appearance: no apparent distress Eyes: normal inspection, sclerae normal Respiratory/Chest: lungs clear, normal breath sounds Cardiovascular: regular rate, rhythm, no murmur Abdomen: normal bowel sounds, non tender, soft Extremities: non-tender, + pertinent finding (1+ LLE edema (chronic)) Neurologic/Psychiatric: 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 No concern for embolic event per neurology. TTE without thrombus, no occult Afib noted so far on telemetry, does not need a KRISTAL. R sided hemiparesis: L jimenez radiata ischemic CVA - improving - MRI brain combo - 1.5 x 0.7 cm infarct L jimenez radiata, no hemorrhagic or mass effect; mild chronic cerebral ischemic changes - CTA head and neck - no significant vessel stenosis/dissection; minimal atherosclerotic scattered changes - HBA1C 5.8 - FLP: trig 192, total cholesterol 275, LDL 201, HDL 26 - Echo - no thrombus, EF 55-60%, LV systolic function nl with no gross wall motion abnormalities, no emboli, and grade I diastolic dysfunction - No occult A. Fib noted on telemetry, does not need a KRISTAL - consult neuro - jmienez radiata area CVA likely small vessel ischemic in nature - loading dose of Plavix 300mg po - Plavix 75mg daily - Asa 81 mg - Pravastatin increased to 80 mg PO given hx of severe myalgias with all other statins in the past - Fluoxetine 10mg daily - prevent depression associated with stroke - Pt/OT/speech evaluated - SPEECH: regular diet, sit upright for meals and 30 mins later, aspiration precautions can use straw, practice slow speech and precise articulation - PT/OT: recommend acute inpatient rehab Non-sustained Vtach resolved; no afib on telemetry - Cardiology consulted - Echo - EF 55-60%, LV systolic function nl with no gross wall motion abnormalities, no emboli, and grade I diastolic dysfunction - no additional interventions/testing CAD/HLD - as above HTN - Takes Metoprolol tartrate 50 mg daily held for permissive htn (sys <220 and nassar <120) - pt confirmed to be taking metoprolol tartrate 50mg once daily which was initially prescribed as BID but pt was non-complaint and thus decreased to once daily - Started on Toprol XL 12.5mg QAM to be held for SBP <110 - hydralazine PRN 25mg for elevated BP Polymyalgia Rheumatica - alternating dose of Prednisone 5mg and 10mg PO daily GERD - Given occasional hx of acid reflux and intermittent usage of Protonix 40mg, dced after discussion of risks/benefits with pt - Started on Ranitidine 150mg HS Allergies/Asthma - Loratadine 10 mg cont - Montelukast 10 mg daily and Dulera cont DVT Prophylaxis: Heparin 5000 Q8H SubQ Dispo: pending placement bed availability and insurance authorization Resident Physician Supervision Note: I interviewed and examined the patient. Discussed with Dr. Guerrero and agree with findings and plan as documented in the note. Any exceptions or clarifications are listed here: None Documented By: Brady Michaels feeling ok about the same but working on things therapy taught him. 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 specifically notes aches to lipitor and crestor - took a few weeks to resolve after stopping the meds vitals noted nad breathing unlabored no pallor or icterus CVA - secondary risk reduction. extensively discussed risks/benefits of other lipid lowering agents - since can't tolerate moderate/high potency statins, will give trial to zetia (discussed low risk, also low benefit, but given the context and trying to reduce risk for fruther CVA would possibly carry more benefit than just pravachol alone.) to d/w PCP / cardiology regarding newer injectable lipid lowering drugs. discussed exercise. for rehab once approved. Resident Involvement: Resident Care Provided Care Provided: Adult [facility] Medicine
[2017-05-20] MEDS: hydrOXYzine HCL 25 MG TAB PO PRN (22:12)
[2017-05-20] MEDS: RANITIDINE HCL 150 MG TAB PO SCH (22:12)
[2017-05-20] MEDS: LORATADINE 10 MG TAB PO SCH (22:12)
[2017-05-21 01:17] VITALS: BP 113/74; PULSE 71; TEMP 36.8; O2SAT 95
[2017-05-21] MEDS: HEPARIN SOD 5000 UNIT/0.5 ML CARP SQ SCH ×3 (06:22→20:28)
[2017-05-21] MEDS: MONTELUKAST SOD 10 MG TAB PO SCH (07:09)
[2017-05-21] MEDS: ASPIRIN 81 MG ECTAB PO SCH (07:09)
[2017-05-21] MEDS: MOMETASONE/FORMOTEROL (DULERA) INH INH SCH ×2 (07:09→20:09)
[2017-05-21] MEDS: CLOPIDOGREL BISULFATE 75 MG TAB PO SCH (07:09)
[2017-05-21] MEDS: METOPROLOL SUCC 25MG EXT REL TAB PO SCH (07:09)
[2017-05-21] MEDS: FLUOXETINE HCL 10 MG CAP PO SCH (07:10)
[2017-05-21] MEDS: EZETIMIBE 10MG TAB PO SCH (07:10)
[2017-05-21 07:57] VITALS: BP 149/95; PULSE 77; TEMP 36.2; O2SAT 96
[2017-05-21 08:00] VITALS: O2SAT 96
[2017-05-21 15:48] VITALS: BP 147/93; PULSE 78; TEMP 36.4; O2SAT 94
[2017-05-21] MEDS: PRAVASTATIN SOD 40 MG TAB PO SCH (16:37)
--- NOTE | 2017-05-21 18:02 | Family Medicine Progress Note ---
Progress Note Date of Service May 21, 2017. Subjective Pt evaluation today including: conversation w/ patient, physical exam, chart review, lab review Pain: reports R calf soreness (pulled muscle) PO Intake: tolerating Voiding: no voiding problems This AM reports improvement in R arm functioning and weakness. Also reports R calf tenderness and feels like he pulled something. Constitutional: No fever, No chills Respiratory: No shortness of breath Cardiovascular: No chest pain Abdomen: No pain, No nausea, No vomiting Musculoskeletal: + calf pain (R leg) Male : No dysuria Neurologic: + weakness Medications Current Inpatient Medications Medications (Trade) Dose Ordered Sig/Miriam Route Start Time Stop Time Status Last Admin Dose Admin Acetaminophen (Tylenol Tab) 650 mg Q4H PRN PO 05/16/17 00:15 06/15/17 00:14 Al Hydrox/Mg Hydrox/Simethicone (Maalox Max Susp) 15 ml Q4H PRN PO 05/16/17 00:15 06/15/17 00:14 Magnesium Hydroxide (Milk Of Magnesia Susp) 30 ml Q12H PRN PO 05/16/17 00:15 06/15/17 00:14 Ondansetron HCl (Zofran Inj) 4 mg Q6H PRN IV 05/16/17 00:15 06/15/17 00:14 Nitroglycerin (Nitrostat Tab) 0.4 mg UD PRN SL 05/16/17 00:15 06/15/17 00:14 Morphine Sulfate (MoRPHine SULFATE INJ) 2 mg Q30M PRN IV 05/16/17 00:15 05/30/17 00:14 Polyethylene (Miralax Powder Packet) 17 gm DAILY PRN PO 05/16/17 00:15 06/15/17 00:14 Loratadine (Claritin Tab) 10 mg HS PO 05/16/17 21:00 06/15/17 20:59 05/20/17 22:12 10 MG Montelukast Sodium (Singulair Tab) 10 mg DAILY PO 05/16/17 09:00 06/15/17 08:59 05/21/17 07:09 10 MG Aspirin (Ecotrin Tab) 81 mg QAM PO 05/16/17 09:00 06/15/17 08:59 05/21/17 07:09 81 MG Clopidogrel Bisulfate (plAVix TAB) 75 mg QAM PO 05/17/17 09:00 06/16/17 08:59 05/21/17 07:09 75 MG Heparin Sodium (Porcine) (Heparin Sq 5000 Unit/0.5ml) 5,000 unit Q8 SQ 05/16/17 22:00 06/15/17 21:59 05/21/17 13:01 5,000 UNIT Fluoxetine HCl (Prozac Cap) 10 mg QAM PO 05/17/17 09:00 06/15/17 08:59 05/21/17 07:10 10 MG Hydroxyzine HCl (Vistaril Tab) 25 mg HS PRN PO 05/16/17 22:15 06/15/17 22:14 05/20/17 22:12 25 MG Prednisone (PredniSONE TAB) 10 mg Q2D@0900 PO 05/17/17 09:00 06/16/17 08:59 05/21/17 07:09 10 MG Prednisone (PredniSONE TAB) 5 mg Q2D@0900 PO 05/18/17 09:00 06/17/17 08:59 05/20/17 07:33 5 MG Ranitidine HCl (zANTac TAB) 150 mg HS PO 05/18/17 21:00 06/17/17 20:59 05/20/17 22:12 150 MG Mometasone Furoate/ Formoterol Fumar (Dulera 100-5 Mcg/Act) 2 puffs BID INH 05/17/17 21:00 06/16/17 20:59 05/21/17 07:09 2 PUFFS Metoprolol Succinate (Toprol Xl Tab) 12.5 mg QAM PO 05/19/17 09:00 06/18/17 08:59 05/21/17 07:09 12.5 MG Pravastatin Sodium (Pravachol Tab) 80 mg DAILY@17 PO 05/19/17 17:00 06/16/17 16:59 05/21/17 16:37 80 MG EZETIMIBE (Zetia Tab) 10 mg QAM PO 05/21/17 08:00 06/20/17 07:59 05/21/17 07:10 10 MG Objective Vital Signs Date Time Temp Pulse Resp B/P (MAP) Pulse Ox O2 Delivery O2 Flow Rate FiO2 05/21/17 16:00 Room Air 05/21/17 15:48 36.4 78 16 147/93 (111) 94 Room Air 05/21/17 08:00 96 Room Air 05/21/17 07:57 36.2 77 18 149/95 (113) 96 Room Air 05/21/17 01:17 36.8 71 20 113/74 (87) 95 Room Air 05/21/17 00:05 Room Air 05/20/17 20:00 Room Air Physical Exam General Appearance: no apparent distress Eyes: normal inspection, sclerae normal Respiratory/Chest: lungs clear, normal breath sounds Cardiovascular: regular rate, rhythm, no murmur Abdomen: normal bowel sounds, non tender, soft Extremities: + calf tenderness (R no point tenderness, no edema/erythema noted noted) Neurologic/Psychiatric: 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 No concern for embolic event per neurology. TTE without thrombus, no occult Afib noted so far on telemetry, does not need a KRISTAL. R sided hemiparesis: L jimenez radiata ischemic CVA - improving - MRI brain combo - 1.5 x 0.7 cm infarct L jimenez radiata, no hemorrhagic or mass effect; mild chronic cerebral ischemic changes - CTA head and neck - no significant vessel stenosis/dissection; minimal atherosclerotic scattered changes - HBA1C 5.8 - FLP: trig 192, total cholesterol 275, LDL 201, HDL 26 - Echo - no thrombus, EF 55-60%, LV systolic function nl with no gross wall motion abnormalities, no emboli, and grade I diastolic dysfunction - No occult A. Fib noted on telemetry, does not need a KRISTAL - consult neuro - jimenez radiata area CVA likely small vessel ischemic in nature - loading dose of Plavix 300mg po - Plavix 75mg daily - Asa 81 mg - Pravastatin increased to 80 mg PO given hx of severe myalgias with all other statins in the past - Fluoxetine 10mg daily - prevent depression associated with stroke - Pt/OT/speech evaluated - SPEECH: regular diet, sit upright for meals and 30 mins later, aspiration precautions can use straw, practice slow speech and precise articulation - PT/OT: recommend acute inpatient rehab R calf tenderness likely from pulled muscle - No point tenderness, erythema/edema - will consider venous doppler if not improving by tomorrow AM or worse Non-sustained Vtach resolved; no afib on telemetry - Cardiology consulted - Echo - EF 55-60%, LV systolic function nl with no gross wall motion abnormalities, no emboli, and grade I diastolic dysfunction - no additional interventions/testing CAD/HLD - as above HTN - Takes Metoprolol tartrate 50 mg daily held for permissive htn (sys <220 and nassar <120) - pt confirmed to be taking metoprolol tartrate 50mg once daily which was initially prescribed as BID but pt was non-complaint and thus decreased to once daily - Started on Toprol XL 12.5mg QAM to be held for SBP <110 - hydralazine PRN 25mg for elevated BP Polymyalgia Rheumatica - alternating dose of Prednisone 5mg and 10mg PO daily GERD - Given occasional hx of acid reflux and intermittent usage of Protonix 40mg, dced after discussion of risks/benefits with pt - Started on Ranitidine 150mg HS Allergies/Asthma - Loratadine 10 mg cont - Montelukast 10 mg daily and Dulera cont DVT Prophylaxis: Heparin 5000 Q8H SubQ Dispo: pending placement bed availability and insurance authorization Resident Physician Supervision Note: I interviewed and examined the patient. Discussed with Dr. Guerrero and agree with findings and plan as documented in the note. Any exceptions or clarifications are listed here: None Documented By: Brady Michaels see separate note, including discussion of insurance company displaying behavior that borders on unethical with their prolonged silence in even responding to request for rehab. Resident Involvement: Resident Care Provided Care Provided: Adult Hospital Medicine
--- NOTE | 2017-05-21 18:02 | Progress Note ---
Progress Note Date of Service May 21, 2017. Progress Note Resident Physician Supervision Note: I interviewed and examined the patient. Discussed with Dr. Guerrero and agree with findings and plan as documented in the note. Any exceptions or clarifications are listed here: None Documented By: Brady Michaels feeling about the same. still waiting on even hearing back from insurance company regarding rehab approval vitals noted nad breathing unlabored no pallor or icterus, ongoing R sided weakness/near hemiparesis but he's working hard to move things better CVA - secondary risk reduction, rehab. at this point it is inexplicable to me that his insurance company has not even replied in regards to his authorization. patient is stable for rehab and, obviously, in recovery from an acute stroke inpatient rehab maximizes his "ceiling" for recovery - but they haven't even replied yet in response, leaving us as his caregivers in a difficult situation where it is unethical to discharge him to home with fall risk and less aggressive rehab thereby reducing his recovery, but also leaving him in a situation where nosocomial infection, deconditioning, and VTE loom as concerns for a prolonged inpatient stay. further, in addition to not even replying yet in regards to the authorization, they are showing near overtly obstructionist tactics in our attempts to facilitate the process - case management assistant on hold for an hour, i was given a number to call that has a nearly impossible to navigate phone tree and no way to get a human being wtihout first successfully navigating the unnavigable tree. given the duration of how long they are dragging out this process, i see this as an unethical move on their part that is actually putting the patient actively in harm's way.
[2017-05-21] MEDS: LORATADINE 10 MG TAB PO SCH (20:10)
[2017-05-21] MEDS: RANITIDINE HCL 150 MG TAB PO SCH (20:10)
[2017-05-21] MEDS: hydrOXYzine HCL 25 MG TAB PO PRN (21:46)
[2017-05-21 23:20] VITALS: BP 124/76; PULSE 76; TEMP 36.4; O2SAT 94
[2017-05-22] MEDS: HEPARIN SOD 5000 UNIT/0.5 ML CARP SQ SCH (06:25)
[2017-05-22 07:45] VITALS: BP 151/89; PULSE 77; TEMP 36.6; O2SAT 98
[2017-05-22 08:00] VITALS: O2SAT 98
[2017-05-22] MEDS: MOMETASONE/FORMOTEROL (DULERA) INH INH SCH (08:07)
[2017-05-22] MEDS: CLOPIDOGREL BISULFATE 75 MG TAB PO SCH (08:08)
[2017-05-22] MEDS: FLUOXETINE HCL 10 MG CAP PO SCH (08:08)
[2017-05-22] MEDS: MONTELUKAST SOD 10 MG TAB PO SCH (08:08)
[2017-05-22] MEDS: EZETIMIBE 10MG TAB PO SCH (08:08)
[2017-05-22] MEDS: ASPIRIN 81 MG ECTAB PO SCH (08:08)
[2017-05-22] MEDS: METOPROLOL SUCC 25MG EXT REL TAB PO SCH (08:08)
[2017-05-22] MEDS ORDERED: TPRSR25 PO (09:24)
[2017-05-22] MEDS ORDERED: PLV75 PO (09:24)
[2017-05-22] MEDS ORDERED: ASPEC81 PO (09:24)
[2017-05-22] MEDS ORDERED: ZNT150 PO (09:24)
[2017-05-22] MEDS ORDERED: PRVC40 PO (09:24)
[2017-05-22] MEDS ORDERED: FLUO10CA24 PO (09:24)
[2017-05-22] MEDS ORDERED: ZTA10 PO (09:24)
[2017-05-22 09:27] VITALS: BP 151/89; PULSE 77; TEMP 36.6; O2SAT 98
--- NOTE | 2017-05-22 09:30 | Discharge Instructions ---
Discharge Instructions Date of Service May 22, 2017. Admission Reason for Admission: TIA Discharge Discharge Diagnosis / Problem: CVA - L jimenez radiata ischemic Discharge Goals Goal(s): Decrease discomfort, Diagnostic testing, Therapeutic intervention Activity Recommendations Activity Limitations: resume your previous activity . Instructions / Follow-Up Instructions / Follow-Up This is a 61 yoM with hx of CAD, multiple MIs, stents and TIAs, PMR on chronic prednisone with R sided weakness, facial droop and slurred speech found to have acute L jimenez radiata ischemic CVA. No concern for embolic event per neurology. TTE without thrombus, no occult Afib noted so far on telemetry, does not need a KRISTAL. R sided hemiparesis: L jimenez radiata ischemic CVA - improving - Continue Plavix 75mg daily - Continue Asa 81 mg daily for now, with ongoing neurology follow up, strongly possible in ~1 month aspirin will be stopped and pt continued on plavix alone - Continue Pravastatin 80 mg daily, zetia 10mg daily --- and then PCP/ cardiology discussion in regards to possible benefit from PCSK9 inhibitor - Continue Fluoxetine 10mg daily - Pt/OT/speech evaluated - SPEECH: regular diet, sit upright for meals and 30 mins later, aspiration precautions can use straw, practice slow speech and precise articulation - PT/OT: recommend acute inpatient rehab R calf tenderness likely from pulled muscle - improving - No point tenderness, erythema/edema - Worse with activity - likely a pulled muscle - Recommend ice/heat pad - if worsens, fails to continue to improve then consider doppler but not appearing warranted at this time HTN - Continue Toprol XL 12.5mg QAM to be held for SBP <110 Polymyalgia Rheumatica - alternating dose of Prednisone 5mg and 10mg PO daily GERD - Continue Ranitidine 150mg HS Allergies/Asthma - Continue Loratadine 10 mg cont - Continue Montelukast 10 mg daily and Dulera Current Hospital Diet Patient's current hospital diet: AHA Diet (Heart Healthy), Low Sodium Diet (2gm Na) Discharge Diet Recommended Diet: AHA Diet (Heart Healthy), Low Sodium Diet (2gm Na) Pending Studies Studies pending at discharge: no Laboratory Results Hemoglobin A1c Test 05/16/17 00:43 Range/Units Estimated Average Glucose 120 mg/dl Hemoglobin A1c 5.8 H 4.5-5.6 % Lipid Panel Test 1/19/18 06:13 Range/Units Triglycerides Level 192 H 0-150 mg/dl Cholesterol Level 275 H 0-200 mg/dl HDL Cholesterol 36 mg/dl Cholesterol/HDL Ratio 7.6 LDL Cholesterol, Calculated 201 mg/dl Medical Emergencies . Who to Call and When: Medical Emergencies: If at any time you feel your situation is an emergency, please call 911 immediately. . Non-Emergent Contact Non-Emergency issues call your: Primary Care Provider . . "Provider Documentation" section prepared by Tiffani Guerrero. . VTE Core Measure Inpt VTE Proph given/why not?: Unfractionated heparin SQ, SCD's
--- NOTE | 2017-05-22 10:38 | Discharge Summary ---
Discharge Summary Date of Service May 22, 2017. Discharge Summary Admission Date: May 16, 2017 at 00:12 Discharge Date: May 22, 2017 Discharge Disposition: Rehab Principal Diagnosis: CVA Problems/Secondary Diagnoses: CAD multiple MIs/stents Multiple TIAs Non-sustained Vtach HLD HTN Polymyalgia rheumatica GERD Allergies Asthma Procedures: BRAIN COMBO HISTORY: 61 years-old Male Stroke acute strokelike symptoms. COMPARISON: CT of the head obtained at outside facility on 05/15/2017 TECHNIQUE: Multiplanar multisequence MRI of the brain was obtained both with and without the use of 9.5 mL Gadavist. FINDINGS: There is a 1.5 x 0.7 cm area of restricted diffusion within the region of the left jimenez radiata demonstrating low signal on the ADC map and slightly increased T2/FLAIR signal compatible with acute infarction. No associated hemorrhage or significant mass effect. No additional acute infarctions identified. The midline structures including the corpus callosum, brainstem, optic chiasm, pineal and pituitary glands appear unremarkable the sagittal T1 series. No cerebellar tonsillar herniation. Degenerative changes are seen within the imaged cervical spine. Scattered foci of increased T2/FLAIR signal seen within the periventricular and subcortical white matter suggesting chronic microvascular ischemic changes. Mild atrophy. No hydrocephalus, intracranial mass or abnormal extra-axial collections. There is no abnormal intra-axial or extra-axial enhancement. The major flow voids at the level the skull base appear patent. Mastoid air cells are clear. Right-sided lynne bullosa with leftward nasal septal spurring. Mild ethmoid sinus disease. Orbits, soft tissues and skull appear unremarkable. IMPRESSION: 1. 1.5 x 0.7 cm acute infarction involves the left jimenez radiata. No associated hemorrhage or significant mass effect. 2. Mild atrophy with mild chronic microvascular ischemic changes. 3. No abnormal intra-axial or extra-axial enhancement. CT ANGIOGRAPHY NECK COMBO CT DOSE: CLINICAL HISTORY: Weakness. Possible stroke. TECHNIQUE: Unenhanced images were obtained through the neck. CT angiography was then performed in a dynamic helical fashion during intravenous administration of 93 cc of Optiray 320. MIP imaging was performed. A dose lowering technique was utilized adhering to the principles of ALARA. COMPARISON STUDY: None. FINDINGS: There is mild atheromatous plaquing and intimal thickening. There is no evidence of hemodynamic significant carotid stenosis. There is no evidence of carotid dissection. There is no evidence of vertebral artery stenosis or dissection. There is a tiny ulcerated plaque at the left internal carotid artery origin. IMPRESSION: 1. No evidence of hemodynamically significant carotid or vertebral artery stenosis. No evidence of carotid or vertebral artery dissection.. 2. Tiny ulcerated plaque at the left internal carotid artery origin. ANGIOGRAPHY HEAD COMBO HISTORY: Mental status change. Weakness. TECHNIQUE: Multiaxial CT images of the head were performed both before and after the intravenous administration of contrast to evaluate the major cerebral vessels. Maximum intensity projection images were also obtained. A dose lowering technique was utilized adhering to the principles of ALARA. COMPARISON: 05/15/2017 FINDINGS: There is no mass, hematoma, midline shift, or acute infarct. Visualized intracranial internal carotid arteries, distal vertebral arteries, and basilar artery are widely patent. There is no significant stenosis, occlusion, or aneurysm seen within the bilateral ACAs, MCAs, or diamond polisher. IMPRESSION: No significant stenosis, occlusion, or aneurysm within the [place] of [place]. Minimal scattered atherosclerotic change Consultations: neurology - Dr. Adama Ramires Medication Reconciliation New Medications: Aspirin (Aspirin EC Low Dose) 81 Mg Ectab 81 MG PO QAM for 30 Days, #30 TAB Clopidogrel Bisulfate (Clopidogrel) 75 Mg Tab 75 MG PO QAM for 30 Days, #30 TAB Ezetimibe (Zetia) 10 Mg Tab 10 MG PO QAM for 30 Days, #30 TAB Fluoxetine HCl (Fluoxetine HCl) 10 Mg Cap 10 MG PO QAM for 30 Days, #30 CAP Metoprolol Succinate (Metoprolol Succinate ER) 25 Mg Tabcr 12.5 MG PO QAM for 30 Days, #15 TAB Pravastatin Sod (Pravastatin Sodium) 40 Mg Tab 80 MG PO DAILY@17 for 30 Days, #60 TAB Ranitidine HCl (Ranitidine HCl) 150 Mg Tab 150 MG PO HS for 30 Days, #30 TAB Continued Medications: Loratadine (Claritin) 10 Mg Tab 10 MG PO HS, TAB Mometasone Furoate-Formoterol (Dulera 200/5 Mcg) 1 Aer Aer 2 PUFFS INH BID for 30 Days, #13 GM 5 Refills Montelukast Sodium (Montelukast Sodium) 10 Mg Tab 1 TAB PO DAILY for 30 Days, #30 TAB 5 Refills Nitroglycerin (Nitrostat) 0.4 Mg Tab 1 TAB SL UD, #100 TAB 3 Refills Prednisone (Prednisone) 5 Mg Tab 5 MG PO DAILY, TAB Discontinued Medications: Metoprolol Tartrate (Lopressor) (Lopressor) 50 Mg Tab 50 MG PO DAILY, TAB Pantoprazole (Protonix) 40 Mg Tab 40 MG PO DAILY, #30 TAB Pravastatin (Pravachol ) 20 Mg Tab 40 MG PO HS, TAB Ticagrelor (Brilinta) 90 Mg Tab 90 MG PO BID Discharge Exam Constitutional: No fever, No chills Respiratory: No shortness of breath Cardiovascular: No chest pain Abdomen: No pain, No nausea, No vomiting Musculoskeletal: + calf pain (R leg) Male : No dysuria Neurologic: + weakness General Appearance: no apparent distress Eyes: normal inspection, sclerae normal Respiratory/Chest: lungs clear, normal breath sounds Cardiovascular: regular rate, rhythm, no murmur Abdomen: normal bowel sounds, non tender, soft Extremities: + calf tenderness (R no point tenderness, no edema/erythema noted noted) Neurologic/Psychiatric: curator 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 tested, alert, oriented x 3, + pertinent finding (CN 2-12 intact; R sided facial asymmetry and droop; 4/5 strength RUE; 5/5 LUE, RLE, LLE; DTR knees intact) Skin: warm/dry Hospital Course This is a 61 yoM with hx of CAD, multiple MIs, stents and TIAs, PMR on chronic prednisone with R sided weakness, facial droop and slurred speech found to have acute L jimenez radiata ischemic CVA. No concern for embolic event per neurology. TTE without thrombus, no occult Afib noted so far on telemetry, does not need a KRISTAL. R sided hemiparesis: L jimenez radiata ischemic CVA - improving - MRI brain combo - 1.5 x 0.7 cm infarct L jimenez radiata, no hemorrhagic or mass effect; mild chronic cerebral ischemic changes - CTA head and neck - no significant vessel stenosis/dissection; minimal atherosclerotic scattered changes - HBA1C 5.8 - FLP: trig 192, total cholesterol 275, LDL 201, HDL 26 - Echo - no thrombus, EF 55-60%, LV systolic function nl with no gross wall motion abnormalities, no emboli, and grade I diastolic dysfunction - No occult A. Fib noted on telemetry, does not need a KRISTAL - consulted neuro - Dr. Adaam Ramires - jimenez radiata area CVA likely small vessel ischemic in nature - loading dose of Plavix 300mg po - Plavix 75mg daily continue for 3 months per neurology - Asa 81 mg continue for 3 months per neurology - Pravastatin increased to 80 mg PO given hx of severe myalgias with all other statins in the past - Started on Zetia 10mg daily - Fluoxetine 10mg daily - prevent depression associated with stroke - Pt/OT/speech evaluated - SPEECH: regular diet, sit upright for meals and 30 mins later, aspiration precautions can use straw, practice slow speech and precise articulation - PT/OT: recommend acute inpatient rehab R calf tenderness likely from pulled muscle - No point tenderness, erythema/edema - According to pt worse with activity and improves with rest, recommended venous Doppler to rule out DVT although low risk given very mobile and on anticoagulation but pt not worried and deferred work up Non-sustained Vtach resolved; no afib on telemetry - Cardiology consulted - Echo - EF 55-60%, LV systolic function nl with no gross wall motion abnormalities, no emboli, and grade I diastolic dysfunction - no additional interventions/testing CAD/HLD - as above HTN - Takes Metoprolol tartrate 50 mg daily held for permissive htn (sys <220 and nassar <120) - pt confirmed to be taking metoprolol tartrate 50mg once daily which was initially prescribed as BID but pt was non-complaint and thus decreased to once daily - Started on Toprol XL 12.5mg QAM to be held for SBP <110 - hydralazine PRN 25mg for elevated BP Polymyalgia Rheumatica - alternating dose of Prednisone 5mg and 10mg PO daily GERD - Given occasional hx of acid reflux and intermittent usage of Protonix 40mg, dced after discussion of risks/benefits with pt - Started on Ranitidine 150mg HS Allergies/Asthma - Loratadine 10 mg cont - Montelukast 10 mg daily and Dulera cont DVT Prophylaxis: Heparin 5000 Q8H SubQ Dispo: [facility] for rehab Resident Physician Supervision Note: I interviewed and examined the patient. Discussed with Dr. Guerrero and agree with findings and plan as documented in the note. Any exceptions or clarifications are listed here: None Documented By: Brady Michaels feeling good wants to go to rehab finally approved vitals noted nad breahting unlabored no pallor or icterus ongoing R sided weakness appearing to be working on it all the time CVA - risks biggest being lipids - due to intolerances that appear real based on his description, can't use lipitor, crestor. is tolerating pravachol. added zetia for now after discussion of risks/benefits and how it is low risk for ADR, but may be low benefit, but with his situation, more favorable to try to lower lipids in general since the most evidence based approach (moderate to high potency statins) are intolerable. to discuss [id number] w PCP/cardiology after discharge from rehab stable for rehab Total Time Spent: Less than 30 minutes This includes examination of the patient, discharge planning, medication reconciliation, and communication with other providers. Discharge Instructions Please refer to the electronic Patient Visit Report (Discharge Instructions) for additional information. Additional Copies To Saurabh Clemens M.D.
== END 2017-05-22 11:44 | DRG 65 ==
LOC: UNDOADMIN 22:41 → C.2T 22:41 → ENRESERV 05-19 15:20 → C.MS4W 05-19 16:01
PROVIDERS: ADMIT Internal Medicine; ATTEND Family Medicine
DX: I63.8 Other cerebral infarction (principal); G81.91 Hemiplegia, unspecified affecting right dominant side; I47.2 Ventricular tachycardia; R29.810 Facial weakness; R47.1 Dysarthria and anarthria; R29.703 NIHSS score 3; I67.82 Cerebral ischemia; M79.661 Pain in right lower leg; I25.2 Old myocardial infarction; I11.9 Hypertensive heart disease without heart failure; I25.10 Atherosclerotic heart disease of native coronary artery without angina pectoris; E78.5 Hyperlipidemia, unspecified; K21.9 Gastro-esophageal reflux disease without esophagitis; J45.909 Unspecified asthma, uncomplicated; M35.3 Polymyalgia rheumatica; Z51.81 Encounter for therapeutic drug level monitoring; Z79.899 Other long term (current) drug therapy; Z79.52 Long term (current) use of systemic steroids; Z86.73 Personal history of transient ischemic attack (TIA), and cerebral infarction without residual deficits; Z91.81 History of falling; Z87.891 Personal history of nicotine dependence; Z82.49 Family history of ischemic heart disease and other diseases of the circulatory system; Z83.49 Family history of other endocrine, nutritional and metabolic diseases; Z95.5 Presence of coronary angioplasty implant and graft